=== PATIENT | female | born 1990 | race Caucasian/White ===

== ENCOUNTER 2021-08-09 00:25 | Emergency (ER) | payer SELFPAY ==
[2021-08-09 00:26] VITALS: BP 126/90; PULSE 99; RESP 18; TEMP 36.4; O2SAT 98; BMI 19.1
[2021-08-09 00:29] VITALS: BP 126/90; PULSE 86; RESP 18; TEMP 36.4; O2SAT 97
--- NOTE | 2021-08-09 00:48 | EX.ED.DYSGE1 ---
HPI History of Present Illness Chief Complaint: Shortness of Breath Narrative Narrative: Patient is a 30-year-old female with past medical history of asthma who continues to smoke. She states she has had approximately 1 month of congestion cough and fatigue. She states that the symptoms will seem to improve for a few days and then return. She states she is vaccinated against Covid and reports she had a home test which was negative just within 24 hours. She states that she has not seen anyone for this but as symptoms have persisted for so long she presents for evaluation [facility] Home Medications albuterol sulfate [Ventolin HFA] 1 - 2 puff INHALATION Q4H PRN PRN #1 device 08/09/21 [Rx Last Taken Unknown] prednisone 40 mg PO DAILY 7 Days #14 tab 08/09/21 [Rx Last Taken Unknown] promethazine-codeine 5 ml PO Q6H PRN 7 Days #140 ml 08/09/21 [Rx Last Taken Unknown] Allergy/AdvReac Type Severity Reaction Status Date / Time Penicillins [PCN] Allergy Anaphylaxis Verified 08/09/21 00:32 Social History Smoking Status: Current every day smoker tobacco type: cigarettes ROS ROS ED Constitutional Constitutional ED: Reports chills, fever(s) and subjective ENT ENT ED: Reports rhinorrhea and sore throat Cardiovascular Cardiovascular: Denies chest pain Respiratory/Chest Respiratory/Chest: Reports cough, dyspnea and sputum Gastrointestinal Gastrointestinal: Reports nausea; Denies abdominal pain, diarrhea or vomiting Genitourinary Genitourinary ED: Denies dysuria Musculoskeletal Musculoskeletal: Reports myalgias Integumentary Denies rash Neurologic Neurologic: Denies headache(s) Hematologic/Lymphatic Hematologic/Lymphatic: Denies easy bleeding or easy bruising EXAM Physical Exam Const Vital Signs: 08/09/21 00:26 08/09/21 00:29 Temperature 97.5 F L 97.5 F L Temperature Source Temporal Temporal Pulse Rate 99 86 Respiratory Rate 18 18 Respiratory Effort Normal Respiratory Depth Normal Blood Pressure 126/90 H 126/90 H Blood Pressure Mean 102 102 Pulse Ox 98 97 Oxygen Delivery Method Room Air Room Air Positive well nourished and well developed General Appearance ED: well developed HEENT Reports moist mucous membranes HEENT Narrative: Nasal mucosa is hyperemic and boggy with enlarged inferior nasal turbinates. There is cobblestoning the posterior pharynx consistent with sinus drainage but no airway edema or compromise Eyes PERRL and EOMs intact bilaterally Neck supple Neck Narrative: Positive anterior cervical lymphadenopathy noted Resp normal respiratory effort Resp Narrative: Breath sounds are diminished throughout with diffuse expiratory wheeze greatest in the bilateral bases Cardio regular rate and regular rhythm GI normal to inspection, nondistended, normoactive bowel sounds, non-tender, non-distended and no masses Auscultation: normoactive bowel sounds Palpation: soft Extremity normal to inspection Extremity Narrative: No asymmetric edema no pitting edema negative Homans' sign bilaterally Neuro oriented x3 and CN's II-XII intact bilaterally Sensorium / Orientation: alert Motor Exam: strength 5/5 throughout Psych mental status grossly normal Skin no rashes or lesions noted MDM MDM MDM Narrative Medical decision making narrative: Patient presented to the ER afebrile with stable vitals and no respiratory distress. Her constellation of symptoms is consistent with a recurrent viral infection. She states she tested negative for Covid just in the last 1 to 2 days so I felt no need to repeat this. I did elect to perform basic laboratory studies as well as influenza swab and chest x-ray based on her constellation of symptoms. Blood work revealed no clinically significant findings chest x-ray revealed no obvious infiltrate and influenza swab was negative. On reevaluation patient is resting comfortably and remains in no acute respiratory distress and therefore can be placed on symptomatic medications and discharged home. Lab Data Attestation: I reviewed the patient's lab results. Labs: Laboratory Results - last 24 hr 08/09/21 08/09/21 01:00 01:00 WBC 8.2 RBC 5.06 Hgb 14.6 Hct 44.1 MCV 87.2 MCH 28.9 MCHC 33.1 RDW Std Deviation 40.8 RDW Coeff of Nish 12.8 Plt Count 328 MPV 10.7 Immature Gran % (Auto) 0.400 Neut % (Auto) 58.0 Lymph % (Auto) 32.4 [place] % (Auto) 7.1 Eos % (Auto) 1.5 Baso % (Auto) 0.6 Absolute Neuts (auto) 4.7 Absolute Lymphs (auto) 2.64 Nucleated RBC % 0 Sodium 144 Potassium 3.6 Chloride 109 H Carbon Dioxide 29.0 Anion Gap 6 BUN 3 L Creatinine 0.66 Estim Creat Clear Calc 124.98 Est GFR (MDRD) Af Amer 132 Est GFR (MDRD) Non-Af 109 BUN/Creatinine Ratio 4.5 L Glucose 99 Calcium 8.8 Magnesium 2.1 Radiography Diagnostic Testing: Clinical Impression(s) from Imaging Studies Chest X-Ray 08/09/21 01:20 IMPRESSION: Normal x-ray examination of the chest. Electronically Signed: Jean Pierre Driver MD at 1:43 EST Tel , Service support , Discharge Plan Triage Chief Complaint: Shortness of Breath ED Provider: Jean Paul Cesar Dx/Rx/DC Orders Clinical Impression: Viral upper respiratory illness Instructions: ED URI, Viral W/ Wheezing (Adult) Prescriptions: New prednisone 20 mg tablet 40 mg PO DAILY 7 Days Qty: 14 RF: 0 albuterol sulfate [Ventolin HFA] 90 mcg/actuation HFA aerosol inhaler 1 - 2 puff inhalation Q4H PRN PRN (Reason: Wheezing) Qty: 1 RF: 0 promethazine-codeine 6.25-10 mg/5 mL syrup 5 ml PO Q6H PRN (Reason: cough) 7 Days Qty: 140 RF: 0 Primary Care Provider: Care Physician,No Primary Referrals: Dia Sim MD [STAFF PHYSICIAN] - 1 Week if not improving Care Physician,No Primary [Primary Care Provider] - Disposition Disposition: Home, Self Care
[2021-08-09] MEDS: dexAMETHasone 10 MG/ML Vial IV (01:02)
[2021-08-09] MEDS: 0.9% Normal Saline 1,000 ML 999 ML IV (01:02)
[2021-08-09 01:07] LABS: Absolute Lymphocyte Count 2.64 X10^3/uL (0.83-4.51); Absolute Neutrophil Count 4.7 X10^3/uL (2.0-7.7); Basophil# 0.05 X10^3/uL; Basophil% 0.6 % (0-1); Eosinophil# 0.12 X10^3/uL; Eosinophils% 1.5 % (0-5); Hematocrit 44.1 % (37-47); Hemoglobin 14.6 g/dL (12.0-15.0); Lymphocyte # 2.64 X10^3/ul (0.83-4.51); Lymphocyte % 32.4 % (19-41); Mean Corp Hgb Conc 33.1 g/dL (32-36); Mean Corpuscular Hgb 28.9 pg (27.0-32.0); Mean Corpuscular Volume 87.2 fL (81-99); Mean Platelet Vol. 10.7 fl (6.2-12.0); Monocyte# 0.58 X10^3/uL; Monocyte% 7.1 % (0-10); NRBC Flagged by Analyzer 0 % (0-5); Neutrophil # 4.74 X10^3/uL (2.7-7.7); Platelet Count 328 K/mm3 (150-450); RBC Distribution Width CV 12.8 % (11.6-14.6); RBC Distribution Width SD 40.8 fl (35.1-43.9); Red Blood Count 5.06 M/mm3 (4.2-5.4); White Blood Count 8.2 K/mm3 (4.4-11.0)
--- NOTE | 2021-08-09 01:20 | RAD_ITS ---
STUDY: X-RAY CHEST REASON FOR EXAM: Female, 30 years old. cough TECHNIQUE: Single AP portable view of the chest. COMPARISON: None. FINDINGS: The lungs are clear and expanded. There is no demonstrated pleural abnormality. Normal size heart. Normal mediastinum and cristino. Normal visualized pulmonary arteries. Normal visualized aortic arch and descending thoracic aorta. Normal visualized thoracic spine. Normal visualized ribs, clavicles, and shoulders. There is no demonstrated abnormality of the visualized soft tissue structures of the upper abdomen. RAD/Chest 1 View (Portable) IMPRESSION: Normal x-ray examination of the chest. Electronically Signed: Jean Pierre Driver MD at 1:43 EST Tel , Service support ,
[2021-08-09 01:26] LABS: Anion Gap 6 (5-15); BUN 3 mg/dL (7-18); BUN/Creat Ratio 4.5 RATIO (10-20); Calcium,Total 8.8 mg/dL (8.5-10.1); Chloride 109 mmol/L (98-107); Creatinine, Serum 0.66 mg/dL (0.55-1.02); EST Glomerular Filtration Rate 109 mL/min (>60); Est Glom Filt Rate - Afr Amer 132 mL/min (>60); Estimated Creatinine Clearance 124.98 ml/min; Glucose 99 mg/dL (74-106); Magnesium 2.1 mg/dL (1.6-2.6); Potassium 3.6 mmol/L (3.5-5.1); Sodium Level 144 mmol/L (136-145)
[2021-08-09] MEDS: Acetaminophen 500 MG Tablet 1000 MG PO (01:59)
[2021-08-09 02:02] VITALS: PULSE 90; RESP 16; O2SAT 100
== END 2021-08-09 02:07 | disposition home or self-care (01) ==
PROVIDERS: Emergency Provider Emergency Medicine
DX: R06.02 Shortness of breath (principal); J45.909 Unspecified asthma, uncomplicated; F17.210 Nicotine dependence, cigarettes, uncomplicated
CPT/HCPCS: 71045; 80048; 83735; 85025; 87804; 96361; 96374; 99284; J7030; A4216

== ENCOUNTER 2021-10-27 11:57 | Emergency (ER) | payer SELFPAY ==
[2021-10-27 11:57] VITALS: BP 150/102; PULSE 102; RESP 16; TEMP 36.2; O2SAT 100; BMI 18.1
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
--- NOTE | 2021-10-27 13:15 | RAD_ITS ---
STUDY: X-RAY CHEST REASON FOR EXAM: Female, 31 years old. Right rib pain TECHNIQUE: PA and lateral views of the chest. COMPARISON: Comparison is made with prior study dated 08/09/2011. FINDINGS: The lungs are clear and expanded. There is no demonstrated pleural abnormality. Normal size heart. Normal mediastinum and cristino. Normal visualized pulmonary arteries. Normal visualized aortic arch and descending thoracic aorta. There is a dextroscoliosis of the thoracic spine. Normal visualized ribs, clavicles, and shoulders. There is no demonstrated abnormality of the visualized soft tissue structures of the upper abdomen. RAD/Chest PA and Lateral IMPRESSION: Normal x-ray examination of the chest. Electronically Signed: Sage Portillo MD at 13:38 EST ,
[2021-10-27] MEDS: HYDROcodone Bitartrate/Apap 5/325 Tablet PO (13:25)
[2021-10-27] MEDS: Ondansetron ODT 4 MG Tablet PO (13:25)
[2021-10-27] MEDS: Ketorolac 15 MG/ML Vial IM (13:26)
[2021-10-27 14:21] VITALS: BP 145/85; PULSE 111; RESP 16; O2SAT 99
== END 2021-10-27 14:22 | disposition home or self-care (01) ==
PROVIDERS: Emergency Provider Physician Assistant; Visit Provider Physician Assistant
DX: S20.211A Contusion of right front wall of thorax, initial encounter (principal); Y04.8XXA Assault by other bodily force, initial encounter; F17.210 Nicotine dependence, cigarettes, uncomplicated; Y93.9 Activity, unspecified; Y92.9 Unspecified place or not applicable
CPT/HCPCS: 71046; 96372; 99284

== ENCOUNTER 2021-12-26 21:09 | Emergency (ER) | payer SELFPAY ==
[2021-12-26 21:09] VITALS: BP 123/78; PULSE 95; RESP 15; TEMP 36.3; O2SAT 97; BMI 19.0
--- NOTE | 2021-12-26 21:40 | EDS_ITS ---
HPI History of Present Illness Chief Complaint: Bite Detail of Chief Complaint: Left groin abscess Informant: patient Onset/Context/Timing Onset: Yesterday Context: Gradual Onset Timing: Continuous Current Severity: Mild Maximum Severity: Mild Narrative Narrative: 31-year-old female history of asthma. Complaining of a swelling in her left groin. Denies any discharge. It is mildly uncomfortable. No fever. She is not diabetic. No prior history. Prior similar symptoms: No Recent Illness/Hospitalization: No PFSH PFSH Medical History Asthma Endometriosis Home Medications sulfamethoxazole-trimethoprim [Bactrim DS] 1 tab PO BID 7 Days #14 tab 12/26/21 [Rx Last Taken Unknown] Allergy/AdvReac Type Severity Reaction Status Date / Time Penicillins [PCN] Allergy Anaphylaxis Verified 12/26/21 21:13 Social History Smoking Status: Current every day smoker tobacco type: cigarettes ROS ROS ED ROS Narrative Denies recent illness. Review of Systems ROS Unobtainable: Denies due to encephalopathy Constitutional Constitutional ED: Denies fever(s) Eyes Eyes: Denies change in vision ENT ENT ED: Denies ear pain Cardiovascular Cardiovascular: Denies chest pain Respiratory/Chest Respiratory/Chest: Denies cough or dyspnea Gastrointestinal Gastrointestinal: Denies abdominal pain, diarrhea, nausea or vomiting Genitourinary Genitourinary ED: Denies dysuria Musculoskeletal Musculoskeletal: Denies myalgias Integumentary Denies rash Neurologic Neurologic: Denies headache(s) Psychiatric Psychiatric: Denies depression Endocrine Endocrinology: Denies polyuria Allergic/Immunologic Allergic/Immunologic ED: Denies urticaria EXAM Physical Exam Narrative Exam Narrative: 31-year-old female no acute distress. H EENT exam multiple piercings. Moist membranes. Lungs are clear. Heart regular rhythm no murmur. Abdomen soft nontender. Moving all 4 extremities. Neurovascular intact. Left groin with skin crease a quarter sized abscess. Tender mild fluctuance. No cellulitis. No discharge or bleeding. Const Vital Signs: 12/26/21 21:09 Temperature 97.4 F L Temperature Source Temporal Pulse Rate 95 Respiratory Rate 15 Blood Pressure 123/78 H Blood Pressure Mean 93 Pulse Ox 97 Oxygen Delivery Method Room Air Positive well nourished and well developed; Negative for obese, cachectic, contractures or unkempt General Appearance ED: well developed and NAD; Negative for unkempt, cachectic, contractures, cyanotic, diaphoretic or pallor Nutritional Appearance: Negative for cachectic or obese HEENT Reports moist mucous membranes Negative for trauma or tenderness Eyes PERRL and EOMs intact bilaterally General Eye ED: Negative for pale conjunctiva or scleral icterus Neck no lymphadenopathy, supple and no JVD General: Negative for tenderness Chest Wall inspection of chest normal and palpation of chest normal Resp normal respiratory effort and clear to auscultation bilaterally Effort and Inspection: Negative for pain with movement Auscultation: Negative for rales, rhonchi or wheezes Cardio regular rate, regular rhythm, S1 normal heart sound, S2 normal heart sound and no murmurs GI normal to inspection, nondistended, normoactive bowel sounds, non-tender, non- distended and no masses Auscultation: normoactive bowel sounds Palpation: soft; Negative for tender, guarding or rebound tenderness present Back/Spine no CVA tenderness Extremity normal to inspection Extremity Narrative: Left groin abscess the size of a quarter. General Extremety ED: Negative for edema or tenderness General Extremity: Negative for edema Neuro oriented x3 Sensorium / Orientation: alert; Negative for orientation impaired, lethargic or stuporous Motor Exam: strength 5/5 throughout Psych mental status grossly normal Appearance: Negative for unkempt Mood & Affect: Negative for depressed Skin no rashes or lesions noted and no wounds Skin Narrative: Left groin abscess. General Skin Exam: Negative for jaundice or pallor MDM MDM MDM Narrative Medical decision making narrative: 31-year-old healthy female with a left groin abscess. This will need to incise and drain. Patient doing well at 1015 after incision and drainage. Procedures Other Procedures Procedure(s): Left groin abscess incision and drainage. Cleaned with Shur- Clens. Previously had let on the site. Local anesthetized with subcu lidocaine. Once proper anesthetic was obtained I made about a 1 cm incision. Expressed 2 to 3 cc of pus a small amount of blood. Packed it with 2 inches of half-inch gauze. Patient tolerated procedure well. Was instructed on wound care. Pulled the packing out in 4 days. Discharge Plan Triage Chief Complaint: Bite ED Provider: Manoj Sparks Dx/Rx/DC Orders Clinical Impression: Abscess, Encounter for incision and drainage procedure Instructions: ED Abscess Incision And Drainage Prescriptions: New sulfamethoxazole-trimethoprim [Bactrim DS] 800-160 mg tablet 1 tab PO BID 7 Days Qty: 14 RF: 0 Primary Care Provider: Care Physician,No Primary Referrals: Tani Reyes MD [STAFF PHYSICIAN] - 1 Week if not improving Care Physician,No Primary [Primary Care Provider] - Activity Restrictions/Additional Instructions: Motrin and Tylenol for pain. Antibiotic Bactrim twice a day for 7 days to help resolve the infection. Warm soaks and warm compresses to the area. Return if worse. Follow-up if not improving. Disposition Disposition: Home, Self Care
[2021-12-26] MEDS: Lidocaine/Epi/Tetracaine 50 ML 1 APPLIC TOPICAL (21:44)
== END 2021-12-26 22:30 | disposition home or self-care (01) ==
PROVIDERS: Emergency Provider Emergency Medicine; Visit Provider Emergency Medicine
DX: L02.214 Cutaneous abscess of groin (principal); F17.210 Nicotine dependence, cigarettes, uncomplicated; J45.909 Unspecified asthma, uncomplicated
CPT/HCPCS: 10060; 99283

== ENCOUNTER 2022-05-06 19:06 | Emergency (ER) | payer SELFPAY ==
[2022-05-06 19:06] VITALS: BP 129/91; PULSE 94; RESP 15; TEMP 37.1; O2SAT 96; BMI 16.9
--- NOTE | 2022-05-06 20:08 | EDS_ITS ---
HPI <YOHANNES Hightower - Last Filed: 05/06/22 21:03> History of Present Illness Chief Complaint: Dental Narrative Narrative: 31-year-old female presents with dental infection. Over the last 2 days she has had pain in her left upper incisor and swelling of the cheek. No fever chills or difficulty swallowing or breathing. She is not diabetic or immunocompromised. PFSH <YOHANNES Hightower - Last Filed: 05/06/22 21:03> [facility] Medical History Asthma Endometriosis Home Medications sulfamethoxazole 800 mg-trimethoprim 160 mg tablet (Bactrim DS) 1 tab PO BID 7 days #14 tabs 12/26/21 [Rx Last Taken Unknown] clindamycin HCl 300 mg capsule (Cleocin HCl) 300 mg PO Q6H #28 CAPSULES 05/06/22 [Rx Last Taken Unknown] hydrocodone-acetaminophen 5-325mg 5mg-325mg 1 tab PO Q6H PRN PRN Pain 3 days #10 TABLETS 05/06/22 [Rx Last Taken Unknown] Allergy/AdvReac Type Severity Reaction Status Date / Time Penicillins [PCN] Allergy Anaphylaxis Verified 05/06/22 19:08 Social History Smoking Status: Current every day smoker tobacco type: cigarettes ROS <YOHANNES Hightower - Last Filed: 05/06/22 21:03> ROS ED ROS Narrative Constitutional: Negative for fever, chills, malaise. Eyes: Negative for visual change. ENT: Positive for dental pain. CVS: Negative for palpitations, chest pain. Respiratory: Negative for shortness of breath, cough. GI: Negative for abdominal pain, nausea, vomiting. : Negative for dysuria. Neuro: Negative for headache. Skin: Negative for rash, abscess, or wound. Musc: Negative for joint pain, swelling, trauma. Heme: Negative for easy bruising, bleeding, lymphadenopathy. EXAM <YOHANNES Hightower - Last Filed: 05/06/22 21:03> Physical Exam Narrative Exam Narrative: CONST: Patient sitting in no acute distress. EYES: Normal inspection. ENT: Mild swelling of left cheek. Diffuse dental caries with multiple missing or avulsed teeth, tender over left upper incisor, no periapical abscess. No trismus or tongue elevation, sublingual space is soft, airway patent with midline uvula. NECK: Normal inspection. Supple, no masses or lymphadenopathy, trachea midline. RESP: No respiratory distress, CTAB. CVS: Regular rate and rhythm, no murmur, no gallop. Back: Normal inspection, no CVA tenderness. SKIN: Color normal, no rash, warm, dry, intact. EXTREMITIES: Normal appearance. NEURO: Oriented x4. PSYCH: Normal affect. Const Vital Signs: 05/06/22 19:06 Temperature 98.7 F Temperature Source Temporal Pulse Rate 94 Respiratory Rate 15 Blood Pressure 129/91 H Blood Pressure Mean 103 Pulse Ox 96 Oxygen Delivery Method Room Air <Dr. Harvinder Valdes MD - Last Filed: 05/06/22 21:40> Physical Exam Const Vital Signs: 05/06/22 19:06 Temperature 98.7 F Temperature Source Temporal Pulse Rate 94 Respiratory Rate 15 Blood Pressure 129/91 H Blood Pressure Mean 103 Pulse Ox 96 Oxygen Delivery Method Room Air MDM <YOHANNES Hightower - Last Filed: 05/06/22 21:03> [facility] Narrative Medical decision making narrative: Patient with chronic significant dental caries has 2 days of dental pain and c heek swelling. She is tender over the left maxillary incisor. There is no periapical abscess or indication for I&D. Airway patent. She was given first dose of clindamycin and a short prescription for [place] and will continue ibuprofen. She was instructed to follow-up with a dentist and was discharged in stable condition. <Dr. Harvinder Valdes MD - Last Filed: 05/06/22 21:40> [facility] Narrative Medical decision making narrative: Patient with chronic significant dental caries has 2 days of dental pain and cheek swelling. She is tender over the left maxillary incisor. There is no periapical abscess or indication for I&D. Airway patent. She was given first dose of clindamycin and a short prescription for [place] and will continue ibuprofen. She was instructed to follow-up with a dentist and was discharged in stable condition. Seen and evaluated independently and in conjunction with physician assistant food service director. Agree with notes above unless documented otherwise. Agree with above, patient has a fractured tooth that appears to have disintegrated partially due to decay. There is no abscess, just developing pain. She is stable, will place her on antibiotics and pain medication, advised close outpatient dental follow-up she is comfortable with the plan. Discharge Plan Triage Chief Complaint: Dental ED Midlevel Provider: Jillian Samano ED Provider: Harvinder Valdes Dx/Rx/DC Orders Clinical Impression: Odontalgia, Dental caries Instructions: ED Dental Abscess Prescriptions: New clindamycin HCl [Cleocin HCl] 300 mg capsule 300 mg PO Q6H Qty: 28 0RF hydrocodone-acetaminophen 5-325 mg tablet 1 tab PO Q6H PRN PRN (Reason: Pain) 3 Days Qty: 10 0RF No Action sulfamethoxazole-trimethoprim [Bactrim DS] 800-160 mg tablet 1 tab PO BID 7 Days Qty: 14 0RF Primary Care Provider: Care Physician,No Primary Referrals: Care Physician,No Primary [Primary Care Provider] - Activity Restrictions/Additional Instructions: Take all of the prescribed antibiotics. Take Tylenol or ibuprofen as needed for pain. Please follow-up with a dentist. If the swelling worsens or you have difficulty swallowing or breathing return to the ER. Disposition Disposition: Home, Self Care Discharge Date/Time: 05/06/22 21:22
[2022-05-06] MEDS: Clindamycin HCl 150 MG Capsule 300 MG PO (20:17)
== END 2022-05-06 21:22 | disposition home or self-care (01) ==
PROVIDERS: Emergency Provider Emergency Medicine; Visit Provider Emergency Medicine
DX: K02.9 Dental caries, unspecified (principal); F17.210 Nicotine dependence, cigarettes, uncomplicated; J45.909 Unspecified asthma, uncomplicated
CPT/HCPCS: 99283

== ENCOUNTER 2022-06-28 08:47 | Emergency (ER) | payer SELFPAY ==
[2022-06-28 08:47] VITALS: BP 118/89; PULSE 108; RESP 16; TEMP 36.2; O2SAT 99; BMI 15.5
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
[2022-06-28] MEDS: HYDROcodone Bitartrate/Apap 5/325 Tablet PO (10:25)
[2022-06-28] MEDS: Diphth,Pertuss(Acell),Tet Vac 0.5 ML Vial IM (10:25)
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
== END 2022-06-28 12:33 | disposition home or self-care (01) ==
PROVIDERS: Emergency Provider Emergency Medicine; Visit Provider Emergency Medicine
DX: S09.90XA Unspecified injury of head, initial encounter (principal); S80.211A Abrasion, right knee, initial encounter; S80.212A Abrasion, left knee, initial encounter; M25.522 Pain in left elbow; M25.572 Pain in left ankle and joints of left foot; R07.81 Pleurodynia; Z23 Encounter for immunization; Y04.8XXA Assault by other bodily force, initial encounter; Y92.410 Unspecified street and highway as the place of occurrence of the external cause; F17.210 Nicotine dependence, cigarettes, uncomplicated
CPT/HCPCS: 70450; 71101; 73080; 73564; 73610; 99283

== ENCOUNTER 2022-07-25 15:16 | Emergency (ER) | payer SELFPAY ==
[2022-07-25 15:17] VITALS: BP 128/91; PULSE 96; RESP 18; TEMP 36.6; O2SAT 98; BMI 16.8
[2022-07-25 16:16] VITALS: PULSE 74; RESP 16; O2SAT 97
[2022-07-25 16:17] VITALS: O2SAT 96
--- NOTE | 2022-07-25 17:20 | EX.ED.VIS.UR ---
HPI HPI - URI History of Present Illness Chief Complaint: Cold Sx Detail of Chief Complaint: 1 to 2 days Informant: patient Onset/Context/Timing Onset: Today and Yesterday Context: Gradual Onset Current Severity: Mild Maximum Severity: Mild Associated Symptoms Associated Symptoms: Positive for Nasal Congestion, Myalgias and Nonproductive cough; Negative for Nausea or Vomiting Narrative Narrative: 29-year-old female history of past medical history. Has had body aches nasal congestion since yesterday. Subjective fever which she is treated with Tylenol. Many coworkers with similar symptoms. No vomiting or diarrhea. Prior similar symptoms: Yes Recent Illness/Hospitalization: No ROS ROS ED ROS Narrative Cough. Nasal congestion. Body aches. Fever. Review of Systems ROS Unobtainable: Denies due to encephalopathy Constitutional Constitutional ED: Reports fever(s) and subjective; Denies chills Eyes Eyes: Denies blurry vision ENT ENT ED: Denies ear pain or rhinorrhea Cardiovascular Cardiovascular: Denies chest pain Respiratory/Chest Respiratory/Chest: Reports cough; Denies dyspnea Gastrointestinal Gastrointestinal: Denies abdominal pain, constipation, diarrhea, melena or nausea Genitourinary Genitourinary ED: Denies dysuria or hematuria Musculoskeletal Musculoskeletal: Denies arthralgias Integumentary Denies abscess Neurologic Neurologic: Denies headache(s) Psychiatric Psychiatric: Denies anxiety Endocrine Endocrinology: Denies cold intolerance Hematologic/Lymphatic Hematologic/Lymphatic: Denies easy bleeding Allergic/Immunologic Allergic/Immunologic ED: Denies mouth swelling, tongue swelling or urticaria PFSH [facility] Medical History Asthma Endometriosis Allergy/AdvReac Type Severity Reaction Status Date / Time Penicillins [PCN] Allergy Anaphylaxis Verified 07/25/22 15:19 Social History Smoking Status: Current every day smoker tobacco type: cigarettes EXAM Physical Exam Narrative Exam Narrative: Well-appearing 29-year-old female. Vital signs stable afebrile. Pulse ox 90% on room air no hypoxia. H EENT exam unremarkable. Neck nontender no lymphadenopathy. Lungs clear to auscultation bilaterally. Heart regular rhythm no murmur. Abdomen soft nontender. Normal bowel sounds no peritoneal signs. Moving all 4 extremities. Calves are nontender without edema or cords. Neurologic exam normal. Const Vital Signs: 07/25/22 15:17 07/25/22 16:16 07/25/22 16:17 Temperature 97.8 F Temperature Source Temporal Pulse Rate 96 74 Respiratory Rate 18 16 Respiratory Effort Short of Breath Blood Pressure 128/91 H Blood Pressure Mean 103 Pulse Ox 98 97 Oxygen Delivery Method Room Air Room Air Room Air Positive well nourished and well developed; Negative for obese, cachectic or contractures General Appearance ED: well developed and NAD; Negative for cachectic, contractures, cyanotic, diaphoretic or pallor Nutritional Appearance: Negative for cachectic or obese HEENT Reports moist mucous membranes; Denies dry mucous membranes normocephalic and atraumatic; Negative for scalp tenderness Face and Sinus: Negative for sinus tenderness or maxillary instability Mouth ED: No dry mucous membranes Mouth: No dry mucous membranes Teeth and [place]ing[place]: Negative for caries Throat: posterior oropharynx normal; Negative for tonsils abnormal or posterior oropharynx abnormal Eyes PERRL and EOMs intact bilaterally General Eye ED: Negative for pale conjunctiva or scleral icterus Neck no lymphadenopathy, supple, no meningeal signs and no JVD General: Negative for anterior neck swelling or lymphadenopathy Resp normal respiratory effort and clear to auscultation bilaterally Effort and Inspection: Negative for retractions Auscultation: Negative for rales, rhonchi, wheezes or diminished lung sounds Cardio S1 normal heart sound, S2 normal heart sound and no murmurs Rate: regular rate; Negative for bradycardia Rhythm: regular rhythm; Negative for abnormal rhythm GI non-tender, non-distended and no masses Inspection: Negative for abdominal distention Auscultation: normoactive bowel sounds Palpation: soft; Negative for tender or guarding Back/Spine no CVA tenderness and normal ROM General Back: Negative for CVA tenderness Cervical Spine: Negative for cervical spine tenderness Thoracic Spine / Upper Back: Negative for thoracic spinal tenderness Lumbar Spine / Lower Back: Negative for lumbar spinal tenderness Sacrum: Negative for tenderness Extremity normal to inspection and full ROM General Extremety ED: Negative for cyanosis or tenderness General Extremity: Negative for cyanosis Neuro oriented x3 and CN's II-XII intact bilaterally Sensorium / Orientation: alert, oriented to person, oriented to place and oriented to time; Negative for orientation impaired, lethargic or stuporous Motor Exam: strength 5/5 throughout Psych mental status grossly normal Appearance: Negative for other Attitude: No agitated Mood & Affect: Negative for depressed, anxious or tearful Skin General Skin Exam: Negative for jaundice or pallor Lesions: no lesions Rashes: no rashes Trauma: Negative for abrasion MDM MDM MDM Narrative Medical decision making narrative: 31-year-old with viral syndrome. Both rapid COVID and influenza were negative. She will be treated as a viral syndrome. Lungs are clear she does not need a chest x-ray. Fluids and rest. Tylenol Motrin. Follow-up if not improving return if worse. Lab Data Attestation: I reviewed the patient's lab results. Lab results narrative: Rapid COVID and influenza test were both negative. Discharge Plan Triage Chief Complaint: Cold Sx ED Provider: Manoj Sparks Dx/Rx/DC Orders Clinical Impression: Viral syndrome Instructions: ED URI, Viral, No Abx (Adult) Stand Alone Forms: ED Work / School Excuse Primary Care Provider: Care Physician,No Primary Referrals: Care Physician,No Primary [Primary Care Provider] - Tani Reyes MD [Med Staff - [facility]] - 1 Week if not improving Activity Restrictions/Additional Instructions: Plenty of fluids and rest. Alternate Tylenol and Motrin for body aches and fever Disposition Disposition: Home, Self Care Discharge Date/Time: 07/25/22 17:24
== END 2022-07-25 17:24 | disposition home or self-care (01) ==
PROVIDERS: Emergency Provider Emergency Medicine; Visit Provider Emergency Medicine
DX: B34.9 Viral infection, unspecified (principal); F17.210 Nicotine dependence, cigarettes, uncomplicated; Z20.822 Contact with and (suspected) exposure to COVID-19
CPT/HCPCS: 87428; 99282

== ENCOUNTER 2023-12-12 22:18 | Emergency (ER) | payer OTHER, SELFPAY ==
[2023-12-12 22:19] VITALS: BP 126/94; PULSE 91; RESP 18; TEMP 36.6; O2SAT 98; BMI 16.6
--- NOTE | 2023-12-12 22:31 | RAD_ITS ---
EXAM: XR RIGHT HAND COMPLETE, 3 OR MORE VIEWS CLINICAL INDICATION: injury TECHNIQUE: Frontal, lateral and oblique views of the right hand. COMPARISON: No relevant prior studies available. FINDINGS: BONES/JOINTS: Vertical fracture through the tuft of the distal phalanx of the thumb. Preservation of the joint space. No sclerotic or destructive changes observed. SOFT TISSUES: Soft tissue swelling of the thumb. No radiopaque foreign body. RAD/Hand Min 3 Views IMPRESSION: Vertical fracture through the tuft of the distal phalanx of the thumb. Electronically Signed: Marc Mims MD at 23:19 EDT ,
--- NOTE | 2023-12-12 22:33 | EX.ED.UPPERE ---
HPI History of Present Illness Chief Complaint: Upper Extremity Injury Informant: patient Occured/Mechanism Mechanism/Context: Yes crush Onset/Context/Timing Onset: Today Narrative Narrative: Patient presents secondary to crush injury to the right thumb. She was at work lifting some racks when her right thumb got pinned between 2 racks causing a crush injury. She is left-hand dominant. No open lacerations. She was wearing gloves at the time. She did take ibuprofen prior to arrival. [facility] PFS Medical History Asthma Endometriosis Allergy/AdvReac Type Severity Reaction Status Date / Time Penicillins [PCN] Allergy Anaphylaxis Verified 12/12/23 22:18 Social History Smoking Status: Current every day smoker tobacco type: cigarettes ROS ROS ED Constitutional Constitutional ED: Denies chills or fever(s) ENT ENT ED: Denies rhinorrhea or sore throat Cardiovascular Cardiovascular: Denies chest pain Gastrointestinal Gastrointestinal: Denies abdominal pain, nausea or vomiting Musculoskeletal Musculoskeletal: Reports extremity pain; Denies back pain Integumentary Denies Abrasions or rash Neurologic Neurologic: Denies headache(s) or weakness Psychiatric Psychiatric: Denies anxiety or depression Allergic/Immunologic Allergic/Immunologic ED: Denies lip swelling or urticaria EXAM Physical Exam Const Vital Signs: 12/12/23 22:19 Temperature 97.8 F Temperature Source Temporal Pulse Rate 91 Respiratory Rate 18 Blood Pressure 126/94 H Blood Pressure Mean 104 Pulse Ox 98 Oxygen Delivery Method Room Air Positive well nourished and well developed General Appearance ED: well developed HEENT Reports moist mucous membranes Chest Wall inspection of chest normal and palpation of chest normal Resp normal respiratory effort and clear to auscultation bilaterally Cardio regular rate and regular rhythm GI non-tender Extremity Extremity Narrative: Mild edema to the right thumb. No lacerations or abrasions noted. Good cap refill distally. Sensation intact. Slight decreased range of motion secondary to pain but able to wiggle all fingers. Neuro oriented x3 Psych mental status grossly normal MDM MDM MDM Narrative Medical decision making narrative: Right hand x-ray obtained to evaluate for potential fracture. Treatment and Re-Evaluation Narrative: Right hand x-ray per my interpretation reveals does show a fracture of the distal phalanx of the right thumb. Radiology interpretation reviewed and agrees. Test results discussed with the patient. She be placed in AlumaFoam splint. She be given work restrictions. She will use Tylenol or ibuprofen as needed for pain. She will follow-up with corporate care in 3 to 5 days. Discharge Plan Triage Chief Complaint: Upper Extremity Injury ED Provider: Cherie Melgar Dx/Rx/DC Orders Clinical Impression: Closed fracture of tuft of distal phalanx of right thumb, Crush injury Instructions: ED Crush Injury, Hand, ED Fracture, Finger, Closed Stand Alone Forms: Work Status Form Primary Care Provider: Care Physician,No Primary Referrals: Corporate,Care [Group of Physicians] - 3-5 Days Care Physician,No Primary [Primary Care Provider] - Disposition Disposition: Home, Self Care
== END 2023-12-12 23:49 | disposition home or self-care (01) ==
PROVIDERS: Emergency Provider Emergency Medicine; Visit Provider Emergency Medicine
DX: S62.521A Displaced fracture of distal phalanx of right thumb, initial encounter for closed fracture (principal); F17.210 Nicotine dependence, cigarettes, uncomplicated; Y99.0 Civilian activity done for income or pay; W23.2XXA Caught, crushed, jammed or pinched between a moving and stationary object, initial encounter; Y93.89 Activity, other specified; Y92.89 Other specified places as the place of occurrence of the external cause
CPT/HCPCS: 73130; 99283

== ENCOUNTER 2024-06-22 15:52 | Emergency (ER) | payer SELFPAY ==
[2024-06-22 15:56] VITALS: BP 130/80; PULSE 90; RESP 18; TEMP 37.2; O2SAT 97; BMI 16.7
--- NOTE | 2024-06-22 16:06 | EKG12_ITS ---
Test Reason : CP Blood Pressure : */* mmHG Vent. Rate : 80 BPM Atrial Rate : 80 BPM P-R Int : 160 ms QRS Dur : 86 ms QT Int : 370 ms P-R-T Axes : 76 73 61 degrees QTcB Int : 426 ms Sinus rhythm with marked sinus arrhythmia Poor R wave progression borderline Confirmed by Juan Luis Levine ([id number]), news assignment editor SYDNEE KRUGER ([id number]) on 06/23/2024 9:19:40 AM Referred By: KOBI/[email or web address] Confirmed By: Juan Luis Levine
--- NOTE | 2024-06-22 16:09 | EDS_ITS ---
HPI <YOHANNES Hightower - Last Filed: 06/22/24 18:00> History of Present Illness Chief Complaint: Chest Pain Narrative Narrative: 33-year-old female with no significant past medical history sent in by urgent care for evaluation of chest pain. She states over the last months she has had intermittent sharp pain in the left side of her chest. It can last a couple seconds or up to a minute. She states the first episode was very painful but since then it was mild and she did not even really think much of it. Today at work sometime between 9 AM and 1 PM when she was walking around she started to feel lightheaded and had chest pain that was lasting longer, several minutes at a time, and also felt short of breath. She denies pain in her jaw or arms. She has no nausea or vomiting. She went to urgent care and then was given aspirin 325 mg and sent here for evaluation. She denies any personal cardiac history. She has had several family members on her maternal side have heart attacks and states her uncle was 32 and had an PA. She smokes 1 pack/day of cigarettes since age 13. She has no history of DVT/PE, leg pain or swelling, recent surgery or travel, cough or hemoptysis. [facility] <YOHANNES Hightower - Last Filed: 06/22/24 18:00> [facility] Medical History Asthma Endometriosis Home Medications ?Medication ?Instructions ?Recorded ?Last Taken ?Type NK 06/22/24 Unknown History Allergy/AdvReac Type Severity Reaction Status Date / Time Penicillins (PCN) Allergy Anaphylaxis Verified 06/22/24 15:56 Social History Smoking Status: Current every day smoker tobacco type: cigarettes ROS <YOHANNES Hightower - Last Filed: 06/22/24 18:00> ROS ED ROS Narrative Constitutional: Negative for fever, chills, malaise. CVS: Positive for chest pain. Negative for palpitations, syncope. Respiratory: Positive for cough. GI: Negative for abdominal pain, nausea, vomiting. EXAM <YOHANNES Hightower - Last Filed: 06/22/24 18:00> Physical Exam Narrative Exam Narrative: CONST: Patient sitting in no acute distress. EYES: Normal inspection. NECK: Normal inspection. RESP: No respiratory distress, CTAB. CVS: Regular rate and rhythm, no murmur, no gallop. ABD: Soft and nontender, no guarding or rebound, nondistended, no hepato splenomegaly. SKIN: Color normal, no rash, warm, dry, intact. EXTREMITIES: Normal appearance, no pedal edema. NEURO: Alert and answering questions appropriately. PSYCH: Normal affect. Const Vital Signs: 06/22/24 15:56 06/22/24 16:02 06/22/24 17:00 Temperature 98.9 F Temperature Source Oral Pulse Rate 90 Respiratory Rate 18 Respiratory Effort Normal Non-Labored Blood Pressure 130/80 H 122/92 H Blood Pressure Mean 96 102 Pulse Ox 97 Oxygen Delivery Method Room Air 06/22/24 17:07 Temperature 98 F Temperature Source Pulse Rate 76 Respiratory Rate 16 Respiratory Effort Blood Pressure 122/92 H Blood Pressure Mean 102 Pulse Ox 99 Oxygen Delivery Method <Dr. Manuel Sam DO - Last Filed: 06/22/24 17:12> Physical Exam Const Vital Signs: 06/22/24 15:56 06/22/24 16:02 06/22/24 17:00 Temperature 98.9 F Temperature Source Oral Pulse Rate 90 Respiratory Rate 18 Respiratory Effort Normal Non-Labored Blood Pressure 130/80 H 122/92 H Blood Pressure Mean 96 102 Pulse Ox 97 Oxygen Delivery Method Room Air 06/22/24 17:07 Temperature 98 F Temperature Source Pulse Rate 76 Respiratory Rate 16 Respiratory Effort Blood Pressure 122/92 H Blood Pressure Mean 102 Pulse Ox 99 Oxygen Delivery Method <YOHANNES Hightower - Last Filed: 06/22/24 18:00> Heart Score Score: 1 <Dr. Manuel Sam DO - Last Filed: 06/22/24 17:12> Heart Score History: Slightly/Non-Suspicious ECG: Normal Age: </= 45 years Risk Factors: 1 or 2 Risk Factors Troponin: </= Normal Limit Score: 1 MDM <YOHANNES Hightower - Last Filed: 06/22/24 18:00> [facility] Narrative Medical decision making narrative: History gathered from: Patient and significant other Differential includes but not limited to: ACS, PE unlikely, GERD, anxiety Patient presents evaluation of chest pain and lightheadedness that started around 9 AM. She is also reporting intermittent chest pain over the last month lasting seconds to minutes. She was given aspirin by urgent care prior to arrival and states her symptoms have resolved. She appears well and nontoxic with normal vital signs. Her exam is unremarkable. EKG is normal sinus rhythm with no acute ischemic changes and troponin is less than 3. Basic labs are unremarkable. CXR shows no acute process. She is PERC negative so I did not order D-dimer. Since her pain started hours ago and has resolved and troponin is less than 3 I do not think she needs serial enzymes. Patient was advised to follow-up with the primary care doctor return if symptoms worsen. She was discharged in stable condition. Lab Data Attestation: I reviewed the patient's lab results. Labs: Laboratory Results - last 24 hr 06/22/24 16:12 WBC 9.9 RBC 4.58 Hgb 13.3 Hct 39.4 MCV 86.0 MCH 29.0 MCHC 33.8 RDW Std Deviation 41.1 RDW Coeff of Nish 13.2 Plt Count 273 MPV 11.8 Immature Gran % (Auto) 0.400 Neut % (Auto) 61.1 Lymph % (Auto) 27.2 [place] % (Auto) 9.5 Eos % (Auto) 1.3 Baso % (Auto) 0.5 Absolute Neuts (auto) 6.1 Absolute Lymphs (auto) 2.70 Nucleated RBC % 0 Sodium 142 Potassium 3.4 L Chloride 110 H Carbon Dioxide 27.0 Anion Gap 6 BUN 6 L Creatinine 0.68 Estim Creat Clear Calc 102.87 Est GFR (MDRD) Af Amer 126 Est GFR (MDRD) Non-Af 104 BUN/Creatinine Ratio 8.8 L Glucose 103 Calcium 9.0 Troponin I High Sens < 3 L Radiography Diagnostic Testing: Clinical Impression(s) from Imaging Studies Chest X-Ray 06/22/24 16:15 IMPRESSION: No radiographic evidence of acute cardiopulmonary disease. Electronically Signed: Melvin Tomlinson DO at 16:36 EST Reading Location ID and State: [facility] / [place] Tel [phone], Service support , ED attending interpretation of 1-view chest x-ray shows normal heart size, no acute infiltrate, edema, or effusion. <Dr. Manuel Sam DO - Last Filed: 06/22/24 17:12> MDM Lab Data Labs: Laboratory Results - last 24 hr 06/22/24 16:12 WBC 9.9 RBC 4.58 Hgb 13.3 Hct 39.4 MCV 86.0 MCH 29.0 MCHC 33.8 RDW Std Deviation 41.1 RDW Coeff of Nish 13.2 Plt Count 273 MPV 11.8 Immature Gran % (Auto) 0.400 Neut % (Auto) 61.1 Lymph % (Auto) 27.2 [place] % (Auto) 9.5 Eos % (Auto) 1.3 Baso % (Auto) 0.5 Absolute Neuts (auto) 6.1 Absolute Lymphs (auto) 2.70 Nucleated RBC % 0 Sodium 142 Potassium 3.4 L Chloride 110 H Carbon Dioxide 27.0 Anion Gap 6 BUN 6 L Creatinine 0.68 Estim Creat Clear Calc 102.87 Est GFR (MDRD) Af Amer 126 Est GFR (MDRD) Non-Af 104 BUN/Creatinine Ratio 8.8 L Glucose 103 Calcium 9.0 Troponin I High Sens < 3 L Radiography Diagnostic Testing: Clinical Impression(s) from Imaging Studies Chest X-Ray 06/22/24 16:15 IMPRESSION: No radiographic evidence of acute cardiopulmonary disease. Electronically Signed: Melvin Tomlinson DO at 16:36 EST Reading Location ID and State: [facility] / [place] Tel [phone], Service support , Treatment and Re-Evaluation :: I have personally performed a face to face assessment of the patient and have reviewed the ELDER Note. I performed a substantive portion of the visit including all aspects of the following. My linn findings include: History: Patient presents with chest pain that began 1 month ago. Patient states it comes and goes. Patient describes it as stabbing. Patient states it is over the left lower parasternal area. Patient states nothing makes it better nothing makes it worse. Patient admits to some shortness of breath and cough. Patient states she occasionally coughs up some clear sputum. Patient admits to some lightheadedness and some palpitations. Patient also admits to some gastroesophageal reflux symptoms. Exam: Vital signs are stable. Patient is afebrile. Patient in no acute distress. Oral mucosa is pink and moist. Neck is supple. Trachea is midline. There is no JVD. Heart was regular rate and rhythm. Lungs are clear and equal bilateral. There is good respiratory effort noted. Abdomen is soft. Bowel sounds are normal. There is no tenderness. Cranial nerves II through XII are intact. There are no focal motor or sensory deficits noted. Medical Decision Making: Differential diagnosis includes cardiac dysrhythmia, cardiac ischemia, pneumonia, pneumothorax, gastroesophageal reflux disease, and anxiety. EKG will be obtained to assess for cardiac dysrhythmia and cardiac ischemia. Chest x-ray will be obtained to assess for pneumonia and pneumothorax. CBC will be obtained to assess for leukocytosis and anemia. Basic metabolic profile will be obtained to assess for electrolyte abnormality and renal function. High-sensitivity troponin will be obtained to assess for cardiac ischemia. I do not feel this is from a pulmonary embolism, patient has no PE risk factors and has normal vital signs. EKG was obtained. On my independent interpretation it shows a normal sinus rhythm with a rate of 80. NV interval, QRS interval, and QTc intervals are within normal limits.. No acute ST or T wave changes noted. PA and lateral chest x-ray was obtained. There are 2 views. On my independent interpretation, lung gan are clear. There is normal cardiac silhouette. Bony thorax is normal. There is no acute process noted. Radiologist also interpreted the x- ray and agrees. CBC was reviewed and was within normal limits. Basic metabolic profile was reviewed. Potassium was slightly low at 3.4. Chloride was slightly elevated at 110. The remainder was essentially within normal limits. High- sensitivity troponin was reviewed and was less than 3. Patient was advised of her findings. Patient has a HEART score of 1. Patient was advised that this is low risk for acute cardiac event. Patient was instructed to follow-up with her primary care physician in 5 to 7 days. Patient understood and was agreeable with the plan. All questions were answered. Discharge Plan Triage Chief Complaint: Chest Pain ED Midlevel Provider: Jillian Samano ED Provider: Manuel Sam Dx/Rx/DC Orders Clinical Impression: Chest pain, Tobacco use disorder Instructions: ED Chest Pain, Uncertain Cause Prescriptions: No Action NK Primary Care Provider: Care Physician,No Primary Referrals: Care Physician,No Primary [Primary Care Provider] - Activity Restrictions/Additional Instructions: Your screening tests today look normal. Follow-up with your primary care doctor or return to the ER if symptoms worsen. Print Language: Lao Disposition Disposition: Home, Self Care Discharge Date/Time: 06/22/24 17:08
--- NOTE | 2024-06-22 16:15 | RAD_ITS ---
INDICATION: chest pain EXAMINATION/TECHNIQUE: X-RAY - XR Chest 2 Views COMPARISON: [06/07/2022 FINDINGS: LINES/DEVICES: None. LUNGS: No consolidation, edema or effusion. No pneumothorax. MEDIASTINUM AND CARDIOVASCULAR STRUCTURES: Cardiac silhouette not enlarged. Central airways and mediastinal contour are unremarkable. BONES AND SOFT TISSUES: Mild scoliosis. RAD/Chest PA and Lateral IMPRESSION: No radiographic evidence of acute cardiopulmonary disease. Electronically Signed: Melvin Tomlinson DO at 16:36 EST ,
[2024-06-22 16:29] LABS: Absolute Neutrophil Count 6.1 X10^3/uL (2.0-7.7); Basophil# 0.05 X10^3/uL; Basophil% 0.5 % (0-1); Eosinophil# 0.13 X10^3/uL; Eosinophils% 1.3 % (0-5); Hematocrit 39.4 % (37-47); Hemoglobin 13.3 g/dL (12.0-15.0); Lymphocyte % 27.2 % (19-41); Mean Corp Hgb Conc 33.8 g/dL (32-36); Mean Platelet Vol. 11.8 fl (6.2-12.0); Monocyte# 0.94 X10^3/uL; Monocyte% 9.5 % (0-10); NRBC Flagged by Analyzer 0 % (0-5); Neutrophil # 6.07 X10^3/uL (2.7-7.7); Neutrophil % 61.1 % (47-70); Platelet Count 273 K/mm3 (150-450); RBC Distribution Width CV 13.2 % (11.6-14.6); RBC Distribution Width SD 41.1 fl (35.1-43.9); Red Blood Count 4.58 M/mm3 (4.2-5.4); White Blood Count 9.9 K/mm3 (4.4-11.0)
[2024-06-22 16:38] LABS: Anion Gap 6 (5-15); BUN 6 mg/dL (7-18); BUN/Creat Ratio 8.8 RATIO (10-20); Chloride 110 mmol/L (98-107); Creatinine, Serum 0.68 mg/dL (0.55-1.02); EST Glomerular Filtration Rate 104 mL/min (>60); Est Glom Filt Rate - Afr Amer 126 mL/min (>60); Estimated Creatinine Clearance 102.87 ml/min; Glucose 103 mg/dL (74-106); Potassium 3.4 mmol/L (3.5-5.1); Sodium Level 142 mmol/L (136-145); Troponin-I HS (w/2H Reflex) < 3 pg/mL (3.0-54.0)
[2024-06-22 17:00] VITALS: BP 122/92
[2024-06-22 17:07] VITALS: BP 122/92; PULSE 76; RESP 16; TEMP 36.6; O2SAT 99
[2024-06-22 18:17] LABS: Reflex Troponin-HS? (from REC) Y
--- OUTSIDE RECORDS SUMMARY | 2024-06-22 19:40 | XMS RPT_ITS | CCD ---
Author Organization [place] [employer] [facility] Results Test Name Value Interpretation Reference Range Facility [facility] 03-25-2022 ALLIED HEALTH HNO ID: [id number] Author: RT Thomas(R) Service: Radiology Author Type: Technologist Type: Allied Health Filed: 03/25/2022 8:21 PM Note Text: Radiology Service Progress Note PATIENT NAME: Silvia Andres DATE OF SERVICE: March 25, 2022 TIME: 8:21 PM PATIENT IDENTITY VERIFICATION COMPLETED USING TWO (2) IDENTIFIERS: Name and Date of confirmed by patient verbally and Name and Date of confirmed by identification band. FALL SCREENING: Has the patient had 2 falls in the last year or 1 fall with injury or currently using an Ambulatory Assistive Device (Walker, Cane, Wheelchair, Crutches, etc.)? Emergency Room Patient: Screened in ED PATIENT GENDER DATA: Female. status: : No status: NO. PATIENT RELEVANT IMPLANT DATA REVIEWED: Not Applicable RADIOLOGY DEPARTMENT: General X-ray: Exam(s) Completed: Chest X-Ray PERIPHERAL IV DATA: Not applicable SIGNED BY: RT Thomas(R) March 25, 2022 8:21 PM Normal [facility] Basic metabolic 2000 panelon 03-25-2022 Anion gap [Moles/Vol] 8 mmol/L Normal 8-16 [facility] Comment on above: Order Comment: Speci men Type: BLOOD SPECIMEN Ordering Facility: [facility] Address: [address] [place] [address] [place] [address] Performed By: #### 2 4321-2 #### [facility] CLIA [id number] [address] [place] [address] [place] Calcium [Mass/Vol] 8.2 mg/dL Low 8.5-10.1 [facility] Comment on above: Order Comment: Speci men Type: BLOOD SPECIMEN Ordering Facility: [facility] Address: [address] [place] [address] Performed By: #### 2 4321-2 #### [facility] CLIA [id number] [address] [place] [address] [place] Chloride [Moles/Vol] 101 mmol/L Normal 98-107 [facility] Comment on above: Order Comment: Speci men Type: BLOOD SPECIMEN Ordering Facility: [facility] Address: [address] [place] [address] Performed By: #### 2 4321-2 #### [facility] CLIA [id number] [address] [place] [address] [place] CO2 [Moles/Vol] 29 mmol/L Normal 21-32 [facility] Comment on above: Order Comment: Speci men Type: BLOOD SPECIMEN Ordering Facility: [facility] Address: [address] [place] [address] Performed By: #### 2 4321-2 #### [facility] CLIA [id number] [address] [place] [address] [place] Creatinine [Mass/Vol] 0.69 mg/dL Normal 0.51-0.95 [facility] Comment on above: Order Comment: Speci men Type: BLOOD SPECIMEN Ordering Facility: [facility] Address: [address] [place] [address] Performed By: #### 2 4321-2 #### [facility] CLIA [id number] [address] [place], [place] [id number] [place] ESTIMATED GLOMERULAR FILTRATION RATE 118 mL/min/1.73m??? Normal >=60 [facility] Comment on above: Order Comment: Speci men Type: BLOOD SPECIMEN Ordering Facility: [facility] Address: [address] [place] [address] Result Comment: Melanie mated Glomerular Filtration Rate (eGFR) is calculated using the 2020 CKD-EPI creatinine equation. This equation utilizes serum creatinine, sex, and age as parameters. The creatinine assay has traceable calibration to isotope dilution-mass spectrometry. Refer to KDIGO guidelines for clinical interpretation. In patients with unstable renal function, e.g. those with acute kidney injury, the eGFR may not accurately reflect actual GFR. Performed By: #### 2 4321-2 #### [facility] CLIA [id number] [address] [place] [address] [place] Glucose [Mass/Vol] 112 mg/dL High 70-99 [facility] Comment on above: Order Comment: Shanice curry Type: BLOOD SPECIMEN Ordering Facility: [facility] Address: [address] [address] Result Comment: The [place] Diabetes Association (ADA) provides guidance for cutoff values for fasting glucose and random glucose. The ADA defines fasting as no caloric intake for at least 8 hours. Fasting plasma glucose results between 100 to 125 mg/dL indicate increased risk for diabetes (prediabetes). Fasting plasma glucose results greater than or equal to 126 mg/dL meet the criteria for diagnosis of diabetes. In the absence of unequivocal hyperglycemia, results should be confirmed by repeat testing. In a patient with classic symptoms of hyperglycemia or hyperglycemic crisis, random plasma glucose results greater than or equal to 200 mg/dL meet the criteria for diagnosis of diabetes. Reference: Standards of Medical Care in Diabetes 2016, [place] [employer] Association. Diabetes Care. 2016.39(Suppl 1). Performed By: #### 2 4321-2 #### [facility] CLIA [id number] [address] [place], [place] [id number] [place] Potassium [Moles/Vol] 3.5 mmol/L Normal 3.5-5.1 [facility] Comment on above: Order Comment: Shanice curry Type: BLOOD SPECIMEN Ordering Facility: [facility] Address: [address] [id number] Performed By: #### 2 4321-2 #### [facility] CLIA [id number] [address] [place] [address] [place] Sodium [Moles/Vol] 138 mmol/L Normal 136-145 [facility] Comment on above: Order Comment: Shanice curry Type: BLOOD SPECIMEN Ordering Facility: [facility] Address: [address] [address] Performed By: #### 2 4321-2 #### [facility] CLIA [id number] [address] [place] [address] [place] [facility] Urea nitrogen [Mass/Vol] 4 mg/dL Low 7-18 [facility] Comment on above: Order Comment: Speci men Type: BLOOD SPECIMEN Ordering Facility: [facility] Address: [address] [place] [address] Performed By: #### 2 4321-2 #### [facility] CLIA [id number] [address] [place] [address] [place] CBC W Auto Differential pane l (Bld)on 03-25-2022 Basophils (Bld) [#/Vol] 0.03 10*3/uL Normal <0.11 [facility] Comment on above: Order Comment: Speci men Type: BLOOD SPECIMEN Ordering Facility: [facility] Address: [address] [place] [address] Performed By: #### 5 7021-8 #### [facility] CLIA [id number] [address] [place] [address] [place] Basophils/100 WBC (Bld) 0.4 % Normal [facility] Comment on above: Order Comment: Speci men Type: BLOOD SPECIMEN Ordering Facility: [facility] Address: [address] [place] [address] Performed By: #### 5 7021-8 #### [facility] CLIA [id number] [address] [place] [address] [place] [facility] Differential cell count method Nom (Bld) Auto Normal [facility] Comment on above: Order Comment: Speci men Type: BLOOD SPECIMEN Ordering Facility: [facility] Address: [address] [place] [address] Performed By: #### 5 7021-8 #### [facility] CLIA [id number] [address] [place] [address] [place] Eosinophils (Bld) [#/Vol] 0.20 10*3/uL Normal <0.46 [facility] Comment on above: Order Comment: Speci men Type: BLOOD SPECIMEN Ordering Facility: [facility] Address: [address] [address] Performed By: #### 5 7021-8 #### [facility] CLIA [id number] [address] [place] [address] [place] Eosinophils/100 WBC (Bld) 2.7 % Normal [facility] Comment on above: Order Comment: Speci men Type: BLOOD SPECIMEN Ordering Facility: [facility] Address: [address] [address] Performed By: #### 5 7021-8 #### [facility] CLIA [id number] [address] [place] [address] [place] Erythrocyte distribution width (RBC) [Ratio] 13.6 % Normal 11.5-15.0 [facility] Comment on above: Order Comment: Speci men Type: BLOOD SPECIMEN Ordering Facility: [facility] Address: [address] [place] [address] Performed By: #### 5 7021-8 #### [facility] CLIA [id number] [address] [place] [address] [place] Hematocrit (Bld) [Volume fraction] 38.4 % Normal 36.0-46.0 [facility] Comment on above: Order Comment: Speci men Type: BLOOD SPECIMEN Ordering Facility: [facility] Address: [address] [address] Performed By: #### 5 7021-8 #### [facility] CLIA [id number] [address] [place] [address] [place] Hemoglobin (Bld) [Mass/Vol] 12.7 g/dL Normal 11.5-15.5 [facility] Comment on above: Order Comment: Speci men Type: BLOOD SPECIMEN Ordering Facility: [facility] Address: [address] [address] Performed By: #### 5 7021-8 #### [facility] CLIA [id number] [address] [place] Lymphocytes (Bld) [#/Vol] 2.38 10*3/uL Normal 1.00-4.00 [facility] Comment on above: Order Comment: Speci men Type: BLOOD SPECIMEN Ordering Facility: [facility] Address: [address] [place] [address] Performed By: #### 5 7021-8 #### [facility] CLIA [id number] [address] [place] [address] [place] Lymphocytes/100 WBC (Bld) 32.4 % Normal [facility] Comment on above: Order Comment: Speci men Type: BLOOD SPECIMEN Ordering Facility: [facility] Address: [address] [place] [address] Performed By: #### 5 7021-8 #### [facility] CLIA [id number] [address] [place] [address] [place] MCH (RBC) [Entitic mass] 28.9 pg Normal 26.0-34.0 [facility] Comment on above: Order Comment: Speci men Type: BLOOD SPECIMEN Ordering Facility: [facility] Address: [address] [place] [address] Performed By: #### 5 7021-8 #### [facility] CLIA [id number] [address] [place] [address] [place] MCHC (RBC) [Mass/Vol] 33.1 g/dL Normal 30.5-36.0 [facility] Comment on above: Order Comment: Speci men Type: BLOOD SPECIMEN Ordering Facility: [facility] Address: [address] [place] [address] Performed By: #### 5 7021-8 #### [facility] CLIA [id number] [address] [place] [address] [place] MCV (RBC) [Entitic vol] 87.5 fL Normal 80.0-100.0 [facility] Comment on above: Order Comment: Speci men Type: BLOOD SPECIMEN Ordering Facility: [facility] Address: [address] [place] [address] Performed By: #### 5 7021-8 #### [facility] CLIA [id number] [address] [place] [address] [place] Monocytes (Bld) [#/Vol] 0.85 10*3/uL Normal <0.87 [facility] Comment on above: Order Comment: Speci men Type: BLOOD SPECIMEN Ordering Facility: [facility] Address: [address] [place] [address] Performed By: #### 5 7021-8 #### [facility] CLIA [id number] [address] [place] [address] [place] Monocytes/100 WBC (Bld) 11.6 % Normal [facility] Comment on above: Order Comment: Speci men Type: BLOOD SPECIMEN Ordering Facility: [facility] Address: [address] [place] [address] Performed By: #### 5 7021-8 #### [facility] CLIA [id number] [address] [place] [address] [place] Neutrophils (Bld) [#/Vol] 3.88 10*3/uL Normal 1.45-7.50 [facility] Comment on above: Order Comment: Speci men Type: BLOOD SPECIMEN Ordering Facility: [facility] Address: [address] [place] [address] Performed By: #### 5 7021-8 #### [facility] CLIA [id number] [address] [place], [place] [address] [place] Neutrophils/100 WBC (Bld) 52.9 % Normal [facility] Comment on above: Order Comment: Speci men Type: BLOOD SPECIMEN Ordering Facility: [facility] Address: [address] [place] [address] Performed By: #### 5 7021-8 #### [facility] CLIA [id number] [address] [place] [address] [place] Platelet mean volume (Bld) [Entitic vol] 10.9 fL Normal 9.0-12.7 [facility] Comment on above: Order Comment: Speci men Type: BLOOD SPECIMEN Ordering Facility: [facility] Address: [address] [place] [address] Performed By: #### 5 7021-8 #### [facility] CLIA [id number] [address] [place] [id number] [place] [address] [place] Platelets (Bld) [#/Vol] 257 10*3/uL Normal 150-400 [facility] Comment on above: Order Comment: Speci men Type: BLOOD SPECIMEN Ordering Facility: [facility] Address: [address] [place] [address] Performed By: #### 5 7021-8 #### [facility] CLIA [id number] [address] [place] [address] RBC (Bld) [#/Vol] 4.39 10*6/uL Normal 3.90-5.20 [facility] Comment on above: Order Comment: Speci men Type: BLOOD SPECIMEN Ordering Facility: [facility] Address: [address] [place] [address] Performed By: #### 5 7021-8 #### [facility] CLIA [id number] [address] [place] [address] [place] WBC (Bld) [#/Vol] 7.34 10*3/uL Normal 3.70-11.00 [facility] Comment on above: Order Comment: Speci men Type: BLOOD SPECIMEN Ordering Facility: [facility] Address: [address] [place] [address] Performed By: #### 5 7021-8 #### [facility] CLIA [id number] [address] [place] [address] [facility] ED NOTEon 03-25-2022 ED NOTE HNO ID: [id number] Author: Shauna Dietz RN Service: Emergency Medicine Author Type: Registered Nurse Type: ED Notes Filed: 03/25/2022 7:48 PM Note Text: Patient presents to the ED with left sided chest pain since yesterday. It had been intermittent, but has become more constant in the last 6 hours. She is also having intermittent left arm numbness. Patient's uncle from a heart attack at age 32. Denies any PMH of any heart problems. Normal [facility] ED PROV NOTEon 03-25-2022 ED PROV NOTE HNO ID: [id number] Author: Immanuel Mtz MD Service: Emergency Medicine Author Type: Physician Type: ED Provider Notes Filed: 03/25/2022 10:40 PM Note Text: Attending Note I evaluated the patient and personally participated in the linn components. I agree with the resident's findings and plan as documented and have discussed the case and management of the patient's care with the resident. PE: Patient is well-appearing found sitting up in bed. She appears in no acute distress. She is awake and alert. Answering questions appropriately. Heart is regular rate rhythm. Lungs are clear and equal. There is no pedal edema bilaterally. No calf edema bilaterally. Patient is a 31-year-old female who presents with left-sided chest pain. States that it first came on last evening. She was just at rest and nothing seems to bring it on. It did go away but now has been there consistently for about the past 6 hours. Again nothing seems to bring on this time as well. She states she has been having little bit of intermittent numbness feeling in her left arm. She denies shortness of breath. Denies nausea. Nothing seems to make it any worse at all. Movement does not seem to change it and taking a deep breath does not seem to change it. She has not noted any unusual leg swelling or calf pain. Patient has no history of hypertension, diabetes, high cholesterol. She does state that she has a family history of an uncle that from a heart attack in his 30s. Patient is clinically well-appearing. Vital signs are unremarkable. EKG shows a normal sinus rhythm with a sinus arrhythmia. Nondiagnostic for acute ischemic changes. Plan at this time is to continue to observe. Obtain cardiac labs since she has had constant symptoms now for about 6 hours. Also chest x-ray. Clinically I have low suspicion for PE. Signature: Immanuel Mtz MD Date: 03/25/2022 Time: 8:23 PM Immanuel Mtz MD 03/25/22 4738 Normal [facility] ED PROV NOTE HNO ID: [id number] Author: Immanuel Mtz MD Service: Emergency Medicine Author Type: Physician Type: ED Provider Notes Filed: 03/25/2022 10:40 PM Note Text: ED Provider Note Patient Name: Silvia Andres : 1990 SERVICE DATE: 03/25/22 History Patient presents with: Chest Pain Patient without significant medical history presenting for concern of chest pain. Patient states for the past couple of days she has had left anterior chest pain intermittently without exacerbating relieving factors. States blood 6 hours has been constant and worsening. States it feels like a sharp and stabbing pain. No similar pain to this previously. No associated chest pain, shortness of breath, lightheadedness, diaphoresis, nausea or vomiting, back pain. No history of PE or DVT. No recent trauma, surgery or immobilization. No hemoptysis. No unilateral leg swelling. Denies estrogen use. No known malignancy. No past medical history on file. No past surgical history on file. No family history on file. Social History Tobacco Use Smoking status: Every Day Types: Cigarettes Smokeless tobacco: Not on file Substance and Sexual Activity Alcohol use: Never Drug use: Never Sexual activity: Not on file ALLERGIES Allergen Reactions Penicillin G Anaphylaxis Review of Systems Constitutional: Negative for activity change, fatigue and fever. HENT: Negative for congestion, rhinorrhea and sore throat. Eyes: Negative for photophobia, discharge and visual disturbance. Respiratory: Negative for cough, shortness of breath and wheezing. Cardiovascular: Positive for chest pain. Negative for palpitations and leg swelling. Gastrointestinal: Negative for abdominal pain, diarrhea, nausea and vomiting. Endocrine: Negative for cold intolerance, heat intolerance and polydipsia. Genitourinary: Negative for difficulty urinating, dysuria and urgency. Musculoskeletal: Negative for arthralgias, back pain, myalgias and neck pain. Skin: Negative for pallor, rash and wound. Neurological: Negative for syncope, numbness and headaches. Physical Exam Vitals [03/25/221947] BP Pulse Temp Temp src Resp SpO2 Weight Height 123/91 85 36.6 ?C (97.8 ?F) Temporal 14 99 % 56.2 kg (124 lb) -- Physical Exam Vitals and nursing note reviewed. Constitutional: General: She is not in acute distress. Appearance: Normal appearance. She is not ill-appearing or toxic-appearing. HENT: Head: Normocephalic and atraumatic. Nose: Nose normal. Mouth/Throat: Mouth: Mucous membranes are moist. Pharynx: Oropharynx is clear. No oropharyngeal exudate or posterior oropharyngeal erythema. Eyes: General: No scleral icterus. Extraocular Movements: Extraocular movements intact. Conjunctiva/sclera: Conjunctivae normal. Cardiovascular: Rate and Rhythm: Normal rate and regular rhythm. Pulses: Normal pulses. Heart sounds: Normal heart sounds. No murmur heard. No gallop. Pulmonary: Effort: Pulmonary effort is normal. No respiratory distress. Breath sounds: Normal breath sounds. No wheezing, rhonchi or rales. Abdominal: General: Abdomen is flat. Palpations: Abdomen is soft. There is no mass. Tenderness: There is no abdominal tenderness. There is no guarding or rebound. Musculoskeletal: General: Normal range of motion. Cervical back: Normal range of motion and neck supple. No rigidity. Right lower leg: No edema. Left lower leg: No edema. Lymphadenopathy: Cervical: No cervical adenopathy. Skin: General: Skin is warm and dry. Neurological: General: No focal deficit present. Mental Status: She is alert and oriented to person, place, and time. Mental status is at baseline. Sensory: No sensory deficit. Psychiatric: Mood and Affect: Mood normal. Behavior: Behavior normal. Diagnostic Testing ED Labs Ordered and Reviewed CBC + DIFF BASIC METABOLIC PNL TROPONIN I Procedures ED Course / Clinical Impression Clinical Impressions as of 03/25/22 2239 Chest pain, unspecified type MDM / Disposition / Plan Patient presents with concerns of chest pain. On arrival to the emergency department patient is demonstrating normal vitals and is in no acute distress. Physical exam significant as described above. Considerations for this patient include musculoskeletal dysfunction, low concern for ACS but given significant family history will obtain cardiac work-up. Patient is PERC negative. Pain control provided. Labs returned demonstrate no acute pathology. Chest x-ray within normal limits and EKG demonstrates no acute ischemic changes. Heart score is 1. As patient has had 6 hours of constant pain, do not feel patient requires second troponin. Recommended continued supportive care at home with Tylenol and ibuprofen as needed for likely musculoskeletal discomfort. Patient discharged from the Emergency Department. I do not feel that the patient's evaluation reveals any ac (more content not included)... Normal [facility] EKGon 03-25-2022 Electrocardiogram Ventricular Rate : 8 4 BPM Atrial Rate : 84 BPM P-R Interval : 178 ms QRS Duration : 108 ms Q-T Interval : 402 ms QTC Calculation(Bazett) : 475 ms Calculated P [place] : 79 degrees Calculated R [place] : 82 degrees Calculated T [place] : 53 degrees NORMAL SINUS RHYTHM WITH SINUS ARRHYTHMIA RIGHT ATRIAL ENLARGEMENT CANNOT RULE OUT ANTERIOR INFARCT , AGE UNDETERMINED ABNORMAL ECG NO PREVIOUS ECGS AVAILABLE Confirmed by ROSEANN BEARDEN ([id number]) on 04/05/2022 9:51:30 PM NAME : SILVIA ANDRES PID : [id number] : 1990 Gender : Female Race : ORD : Procedure Date : Mar 25 2022 19:52:40 Edit Date : Apr 05 2022 21:51:32 Diagnosis: NORMAL SINUS RHYTHM WITH SINUS ARRHYTHMIA RIGHT ATRIAL ENLARGEMENT CANNOT RULE OUT ANTERIOR INFARCT , AGE UNDETERMINED ABNORMAL ECG NO PREVIOUS ECGS AVAILABLE Confirmed by ROSEANN BEARDEN ([id number]) on 04/05/2022 9:51:30 PM Test Reason : Location : 148 : [facility] 6 Overread By : ROSEANN BEARDEN Edited By : ROSEANN BEARDEN Referred By : , Acquired by : ELINA LATHAM Normal [facility] HCG Preg Ur Qlon 03-25-2022 HCG ( test) Ql (U) Negative Normal Negative [facility] Comment on above: Order Comment: Speci men Type: URINE SPECIMEN Ordering Facility: [facility] Address: [address] [place], [place] [address] Result Comment: This test is intended to aid in the early detection of . Very dilute urine samples, as indicated by a low specific gravity, may not contain provider service representative levels of hCG. This test detects intact hCG only. This test does not reliably detect hCG degradation products, including free-beta subunit and beta-core fragment. Therefore, this test may show reduced reactivity in urine after 8 weeks gestation. A number of conditions other than , including trophoblastic disease and certain non-trophoblastic neoplasms cause elevated levels of hCG. As with any assay employing mouse antibodies, the possibility exists for interference by human anti-mouse antibodies (HAMA) in the specimen. The test provides a presumptive diagnosis for . Performed By: #### 2 106-3 #### [facility] CLIA [id number] [address] [place] [address] [facility] [place] TROPONIN Ion 03-25-2022 Troponin I.cardiac [Mass/Vol] 0.000 ng/mL Normal <0.040 [facility] Comment on above: Order Comment: Speci men Type: BLOOD SPECIMEN Ordering Facility: [facility] Address: [address] [place] [address] Performed By: #### T ROP #### [facility] CLIA [id number] [address] [place] [id number] [facility] XR CHEST 2V FRONTAL/LATon XR CHEST 2V FRONTAL/LAT * * *Final Report* * * DATE OF EXAM: Mar 25 2022 8:49PM [id number] - XR CHEST 2V FRONTAL/LAT / PROCEDURE REASON: Chest pain, nonspecific * * * * Physician Interpretation * * * * EXAMINATION: CHEST RADIOGRAPH (2 VIEW FRONTAL and LATERAL) CLINICAL HISTORY: Chest pain, nonspecific MQ: [id number] EXAM DATE/TIME: 03/25/2022 8:49 PM COMPARISON: No relevant prior studies available. RESULT: Lines, tubes, and devices: None. Lungs and pleura: No consolidation. No lung mass. No pleural effusion. No pneumothorax. Cardiomediastinal silhouette: Normal cardiomediastinal silhouette. Bones and soft tissues: There is minimal scoliosis of the upper thoracic spine and there are bilateral nipple pins. IMPRESSION: Unremarkable exam with no acute radiographic abnormality. Advanced Manager: PSCB Transcribe Date/Time: Mar 25 2022 9:00P Dictated by : DONNIE CRISTINA MD This examination was interpreted and the report reviewed and electronically signed by: DONNIE CRISTINA MD on Mar 25 2022 9:01PM EST [id number] Normal [facility] Summary Purpose Family History No Family History Records Found Advance Directives No Advanced Directives Records Found Additional Source Comments INFORMATION SOURCE (unrecogn ized section and content) DATE CREATED AUTHOR 04/12/2022 [facility] FOR RECORDS PERTAINING TO PATIENTS WHO ARE OR HAVE BEEN ENROLLED IN A CHEMICAL DEPENDENCY/SUBSTANCEABUSE PROGRAM, SOME INFORMATION MAY BE OMITTED. This clinical summary was aggregated from multiple sources. Caution should be exercised in using it in the provision of clinical care. This summary normalizes information from multiple sources, and as a consequence, information in this document may materially change the coding, format and clinical context of patient data. In addition, data may be omitted in some cases. CLINICAL DECISIONS SHOULD BE BASED ON THE PRIMARY CLINICAL RECORDS. [facility]. provides no warranty or guarantee of the accuracy or completeness of information in this document.
== END 2024-06-22 17:08 | disposition home or self-care (01) ==
PROVIDERS: Physician Assistant; Emergency Provider Emergency Medicine; Visit Provider Emergency Medicine
DX: R07.9 Chest pain, unspecified (principal); F17.210 Nicotine dependence, cigarettes, uncomplicated
CPT/HCPCS: 71046; 80048; 84484; 85025; 93005; 99285

== ENCOUNTER 2025-04-22 08:03 | Emergency (ER) | payer SELFPAY ==
[2025-04-22 08:05] VITALS: BP 177/125; PULSE 97; RESP 16; TEMP 37; O2SAT 99; BMI 16.8
--- NOTE | 2025-04-22 08:19 | CT_ITS ---
PROCEDURE: ABDOMEN/PELVIS WITHOUT CONT 04/22/2025 REASON FOR EXAM: RIGHT UPPER QUADRANT PAIN TECHNIQUE: Procedure Code: CTABDPEL Modality: CT Procedure: ABDOMEN/PELVIS WITHOUT CONT Noncontrast technique limits evaluation of the abdominal and pelvic viscera. Coronal and Sagittal reconstruction series were provided. One or more dose reduction techniques were used (e.g., Automated exposure control, adjustment of the mA and/or kV according to patient size, use of iterative reconstruction technique). RADIATION DOSE SUMMARY: CTDlvol: 6 mGy DLP: 285 mGycm COMPARISON: None FINDINGS: Lung bases: Clear Liver: Normal Gallbladder: Normal Spleen: Normal Pancreas: Normal Adrenals: Normal Kidneys: Normal. No collecting system dilation. Bladder: Normal Reproductive Organs: Retroverted uterus. Tampon in the vagina. No adnexal mass. Bowel: Stomach appears normal. Small bowel is normal. Colon appears normal. Appendix: Normal Lymph nodes: None appear enlarged. Vasculature: Normal Peritoneum / Retroperitoneum: No free air, free fluid or mass. Bones: No fracture CT/Abdomen/Pelvis without Cont IMPRESSION: No acute abnormality Reading Location: [facility]
--- NOTE | 2025-04-22 08:20 | ED.VIS.GI ---
HPI HPI - GI History of Present Illness Chief Complaint: Abd Pain Detail of Chief Complaint: Abdominal pain Informant: patient Abdominal Pain/Flank Pain Current Severity: 02/25 Narrative Narrative: Patient presents with right upper quadrant abdominal pain that started suddenly while at work today few hours ago. She denies similar episodes. She states she got nauseated and felt lightheaded when the pain hit. Rates her pain currently as a 7 out of 10. She also started her menstrual period this morning. Patient also has had 5 watery stools this morning. She denies fevers or chills or sweats. She denies dysuria urgency or frequency. No history of kidney stones. Patient states that she was told during one of her C-sections that she had a bad gallbladder but then had testing for it and saw that she may have had a HIDA scan which was normal. She denies recently having pain with eating. [facility] Medical History Asthma Endometriosis Home Medications ?Medication ?Instructions ?Recorded ?Last Taken ?Type NK 06/22/24 Unknown History Allergy/AdvReac Type Severity Reaction Status Date / Time bee pollen Allergy Severe Anaphylaxis Verified 04/22/25 08:05 shellfish derived Allergy Severe Anaphylaxis Verified 04/22/25 08:05 Penicillins (PCN) Allergy Anaphylaxis Verified 04/22/25 08:05 Social History (Updated 04/22/25 @ 08:11 by Sharon Rodriguez) housing: house Smoking Status: Current every day smoker tobacco type: cigarettes ROS ROS ED Review of Systems ROS Unobtainable: other Constitutional Constitutional ED: Reports lethargy; Denies chills, fever(s), sweats or weight loss Eyes Eyes: Denies blurry vision, change in vision or diplopia ENT ENT ED: Denies rhinorrhea or sore throat Cardiovascular Cardiovascular: Denies chest pain, orthopnea or racing heartbeat Respiratory/Chest Respiratory/Chest: Denies cough, dyspnea, dyspnea on exertion, orthopnea or sputum Gastrointestinal Gastrointestinal: Reports abdominal pain, diarrhea and nausea; Denies vomiting Genitourinary Genitourinary ED: Denies dysuria, hematuria or urinary frequency Musculoskeletal Musculoskeletal: Denies arthralgias, back pain, myalgias or neck pain Integumentary Denies abscess, Abrasions or rash Neurologic Neurologic: Denies headache(s) or weakness Psychiatric Psychiatric: Denies anxiety, depression or suicidal thoughts Endocrine Endocrinology: Denies polydipsia, polyphagia or polyuria Hematologic/Lymphatic Hematologic/Lymphatic: Denies easy bleeding, easy bruising or lymphadenopathy Allergic/Immunologic Allergic/Immunologic ED: Denies mouth swelling, tongue swelling or urticaria EXAM Physical Exam Const Vital Signs: 04/22/25 08:05 04/22/25 10:04 Temperature 98.6 F Temperature Source Oral Pulse Rate 97 70 Respiratory Rate 16 18 Blood Pressure 177/125 H 128/80 H Blood Pressure Mean 142 96 Pulse Ox 99 98 Oxygen Delivery Method Room Air Positive well nourished and well developed General Appearance ED: well developed and NAD HEENT Reports TM's clear and moist mucous membranes normocephalic and atraumatic; Negative for trauma or tenderness Tympanic Membrane ED: Yes TM's clear Eyes PERRL and EOMs intact bilaterally General Eye ED: Negative for pale conjunctiva or scleral icterus Neck no lymphadenopathy, supple and no JVD General: Negative for tenderness Chest Wall inspection of chest normal and palpation of chest normal Chest: Negative for tenderness Resp normal respiratory effort and clear to auscultation bilaterally Effort and Inspection: Negative for respiratory distress or pain with movement Auscultation: Negative for rhonchi, wheezes or diminished lung sounds Cardio regular rate, regular rhythm, S1 normal heart sound, S2 normal heart sound and no murmurs Peripheral Pulses: pulses 2+ throughout GI normal to inspection, nondistended, normoactive bowel sounds, soft to palpation, non-distended and no masses GI Narrative: Tenderness to palpation over the right upper quadrant with some mild guarding. There is no rebound, rigidity, or apparent signs. No mass palpated Back/Spine no CVA tenderness and no thoracic nor lumbar tenderness Extremity normal to inspection General Extremety ED: Negative for edema General Extremity: Negative for edema Neuro oriented x3, CN's II-XII intact bilaterally, no sensory deficits noted and gait normal Sensorium / Orientation: awake, alert, oriented to person, oriented to place and oriented to time Motor Exam: strength 5/5 throughout and strength abnormal Psych mental status grossly normal Skin no rashes or lesions noted and no wounds MDM MDM MDM Narrative Medical decision making narrative: Patient presents with abdominal pain rather sudden onset. Clinically looks well. IV line established. CBC with differential obtained showing a 6.7 with hemoglobin 14.5 and platelet count of 363. Chemistries unremarkable. LFTs showed minimal elevation in the AST at 36 and ALT was 20 and alk phos was 112. Lipase was normal at 44. hCG was negative. CT scan of the abdomen pelvis was normal. Urinalysis was unremarkable. On repeat exam her pain is markedly improved. States at rest she really does not have any discomfort currently. Etiology of her abdominal pain unclear. Patient will be referred to [facility] as she would like to stop drinking alcohol. She does not want to go through detox here at the hospital. Lab Data Attestation: I reviewed the patient's lab results. Labs: Laboratory Results - last 24 hr 04/22/25 04/22/25 08:22 09:49 WBC 6.7 RBC 4.90 Hgb 14.5 Hct 41.8 MCV 85.3 MCH 29.6 MCHC 34.7 RDW Std Deviation 50.1 H RDW Coeff of Nish 15.9 H Plt Count 363 MPV 10.4 Immature Gran % (Auto) 0.300 Neut % (Auto) 58.9 Lymph % (Auto) 27.2 [place] % (Auto) 11.9 H Eos % (Auto) 0.7 Baso % (Auto) 1.0 Absolute Neuts (auto) 4.0 Absolute Lymphs (auto) 1.83 Nucleated RBC % 0 Sodium 137 Potassium 3.9 Chloride 99 Carbon Dioxide 25.0 Anion Gap 14 BUN 5 Creatinine 0.74 Estim Creat Clear Calc 94.22 Est GFR (MDRD) Non-Af 108 BUN/Creatinine Ratio 6.1 L Glucose 99 Calcium 8.9 Total Bilirubin 0.33 AST 36 H ALT 20 Alkaline Phosphatase 112 H Total Protein 7.4 Albumin 4.7 Globulin 2.7 Albumin/Globulin Ratio 1.8 Lipase 44 Serum , Qual NEGATIVE Urine Color Yellow Urine Clarity Clear Urine pH 8.0 Ur Specific [place] 1.010 Urine Protein 15 H Urine Glucose (UA) Normal Urine Ketones Negative Urine Occult Blood Negative Urine Nitrite Negative Urine Bilirubin Negative Urine Urobilinogen Normal Ur Leukocyte Esterase Negative Urine RBC 0 SEEN Urine WBC 0-5 SEEN Ur Squamous Epith Cells 0-5 SEEN Urine Bacteria 0 SEEN Urine Mucus 0 SEEN Radiography Diagnostic Testing: Clinical Impression(s) from Imaging Studies Abdomen/Pelvis CT 04/22/25 08:19 IMPRESSION: No acute abnormality Reading Location: [facility] Discharge Plan Triage Chief Complaint: Abd Pain ED Provider: Vickie Nogueira Dx/Rx/DC Orders Clinical Impression: Abdominal pain Instructions: ED Abdominal Pain Unkn Cause Fem Prescriptions: No Action NK Primary Care Provider: Care Physician,No Primary Referrals: Care Physician,No Primary [Primary Care Provider] - [facility] [Non-Staff] - As Needed Print Language: [place] Disposition Disposition: Home, Self Care
[2025-04-22] MEDS: 0.9% Normal Saline (1000mL) 1,000 ML 125 ML IV (08:31)
[2025-04-22 08:45] LABS: Hematocrit 41.8 % (37-47); Hemoglobin 14.5 g/dL (12.0-15.0); Immature Granulocytes Count 0.020 X10^3/uL (0.0-0.0); Mean Corp Hgb Conc 34.7 g/dL (32-36); Mean Corpuscular Volume 85.3 fL (81-99); Mean Platelet Vol. 10.4 fl (6.2-12.0); NRBC Flagged by Analyzer 0 % (0-5); Platelet Count 363 K/mm3 (150-450); RBC Distribution Width CV 15.9 % (11.6-14.6); RBC Distribution Width SD 50.1 fl (35.1-43.9); Red Blood Count 4.90 M/mm3 (4.2-5.4); White Blood Count 6.7 K/mm3 (4.4-11.0)
[2025-04-22 08:58] LABS: Internal QC Validated? YES +Cl - CLEAR BKGD; Pregnancy, Serum, hCG Quali. NEGATIVE Negative; Record Kit Lot#, Serum Preg. 0000947241
[2025-04-22 09:23] LABS: AST(SGOT) 36 U/L (<=31); Alanine Aminotransfer ALT/SGPT 20 U/L (<=34); Albumin, Serum 4.7 g/dL (3.5-5.0); Alkaline Phosphatase 112 U/L (35-104); Anion Gap 14 (5-15); BUN 5 mg/dL (4-19); BUN/Creat Ratio 6.1 RATIO (10-20); Calcium,Total 8.9 mg/dL (7.6-11.0); Carbon Dioxide 25.0 mmol/L (21.0-32.0); Chloride 99 mmol/L (98-108); Estimated Creatinine Clearance 94.22 ml/min (50-250); Globulin 2.7 g/dL (2.2-4.2); Glucose 99 mg/dL (70-99); Lipase 44 U/L (13-75); Potassium 3.9 mmol/L (3.3-5.1)
[2025-04-22 09:54] LABS: Mucous, Urine 0 SEEN /hpf (<or=2+); Red Blood Cells-Urine 0 SEEN /hpf (0-5)
[2025-04-22 10:04] VITALS: BP 128/80; PULSE 70; RESP 18; O2SAT 98
[2025-04-22 10:07] LABS: Glucose, Dipstick Normal (Normal); Ketone-Dipstick Negative (Negative); Leukocyte Esterase-Dipstick Negative /ul (Negative); Nitrite-Dipstick Negative (Negative); Occult Blood-Urine Negative /ul (Negative); Protein-Dipstick 15 mg/dl (Negative); Specific Gravity, Urine 1.010 (1.002-1.030); Urine Bilirubin Dipstick Negative (Negative)
[2025-04-22 10:40] LABS: Color, Urine Yellow (Yellow)
[2025-04-22 10:42] LABS: Squamous Epithelial Cells - UA 0-5 SEEN /hpf (5-10)
--- NOTE | 2025-04-22 10:46 | CM.ED ---
Social work Reason for referral: resources Referral source: case find SW identified patient's lack of PCP and insurance and possible need for resources. SW entered patient's room, identifying self and role at [facility]. Patient accepted SW visit and accepted the following resources: [facility] Provider Directory, Isi Castano information, and how to apply for Medicaid. Karolyn Gold, LEAD RECREATION ASSISTANT, ELECTRONIC VIDEO GAMES SERVICER
[2025-04-22 10:50] VITALS: BP 128/80; PULSE 70; RESP 18; TEMP 37.1; O2SAT 98
== END 2025-04-22 10:54 | disposition home or self-care (01) ==
PROVIDERS: Emergency Provider Emergency Medicine; Visit Provider Emergency Medicine
DX: R10.11 Right upper quadrant pain (principal); F17.210 Nicotine dependence, cigarettes, uncomplicated
CPT/HCPCS: 74176; 80053; 81001; 83690; 84703; 85025; 96360; 96361; 99282

== ENCOUNTER 2025-06-10 20:09 | Emergency (ER) | payer SELFPAY ==
[2025-06-10] VITALS (13 sets, daily range): BP systolic 120–159; BP diastolic 86–112; PULSE 89–114; RESP 18; TEMP 36.7; O2SAT 80–100
--- OUTSIDE RECORDS SUMMARY | 2025-06-10 20:29 | XMS RPT_ITS | CCD ---
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 - Fully Assessed Reason for Visit: Sinus Problem [99] Cmt: sinus pressure and drainage x 2 days Primary Visit Diagnosis:Nasal congestion [R09.81] Order(s):oxymetazoline (AFRIN, OXYMETAZOLINE,) 0.05 % nasal sprayUse 2 Sprays in each nostril two times a day for 5 days.Disp: 22 mLRfl: 0 Prescriptions as of 06/23/2024 - oxymetazoline (AFRIN, OXYMETAZOLINE,) 0.05 % nasal spray Use 2 (more content not included)... Normal [facility] 12 Lead EKGon 06-22-2024 12 Lead EKG [facility] Cardiovascular Services [address] [place] [address] 12 Lead EKG 06/22/24 1603 MR#: [id number] Acct: [id number] Name: LIDIA ANDRES Rep #: [id number] : 1990 33 From: Juan Luis Levine MD Attending Dr: Status: DEP ER Ordering Dr: Jillian Samano Date: 06/22/24 Location: ED Sex: F C Admitted: Test Reason : CP Blood Pressure : */* mmHG Vent. Rate : 80 BPM Atrial Rate : 80 BPM P-R Int : 160 ms QRS Dur : 86 ms QT Int : 370 ms P-R-T Axes : 76 73 61 degrees QTcB Int : 426 ms Sinus rhythm with marked sinus arrhythmia Poor R wave progression borderline Confirmed by Juan Luis Levine ([id number]), visual effects editor SYDNEE KRUGER ([id number]) on 06/23/2024 9:19:40 AM Referred By: KOBI/YAJAIRA Confirmed By: Juan Luis Levine 06/23/24 0919 Date Juan Luis Levine MD CC: Dr. Manuel Sam, DO; YOHANNES Hightower; No Primary Care Physician Signed Normal [facility] Basic Metabolic Profile (BMP )on 06-22-2024 BUN/CRE 8.8 RATIO Low 10-20 [facility] Comment on above: Order Comment: 1Y Performed By: #### L 501.5425, L500.2500, L100.0100 ####[facility] [address] [place], [address] CA,Total 9.0 mg/dL Normal 8.5-10.1 [facility] Comment on above: Order Comment: 1Y Performed By: #### L 501.5425, L500.2500, L100.0100 ####[facility] [address], [address] Chloride [Moles/Vol] 110 mmol/L High 98-107 [facility] Comment on above: Order Comment: 1Y Performed By: #### L 501.5425, L500.2500, L100.0100 ####[facility] [address] [place], [address] CO2 [Moles/Vol] 27.0 mmol/L Normal 21.0-32.0 [facility] Comment on above: Order Comment: 1Y Performed By: #### L 501.5425, L500.2500, L100.0100 ####[facility] [address] [place], [address] Creatinine [Mass/Vol] 0.68 mg/dL Normal 0.55-1.02 [facility] Comment on above: Order Comment: 1Y Result Comment: The validity of the calculated GFR GFRAA in patients over 70 years has not been determined. Clinical correlation is essential. Performed By: #### L 501.5425, L500.2500, L100.0100 ####[facility] [address] [place], [address] ECRCL 102.87 ml/min Normal [facility] Comment on above: Order Comment: 1Y Performed By: #### L 501.5425, L500.2500, L100.0100 ####[facility] [address] [place], [address] EST GFR - AA 126 mL/min Normal >60 [facility] Comment on above: Order Comment: 1Y Result Comment: Afri can Senegalese GFR Calc Performed By: #### L 501.5425, L500.2500, L100.0100 ####[facility] [address] [place], [address] GAP 6 Normal 5-15 [facility] Comment on above: Order Comment: 1Y Performed By: #### L 501.5425, L500.2500, L100.0100 ####[facility] [address] [place], [address] GFR/1.73 sq M.predicted among non-blacks MDRD (S/P/Bld) [Vol rate/Area] 104 mL/min/{1.73_m2} Normal >60 [facility] Comment on above: Order Comment: 1Y Result Comment: Non- GFR Calc Performed By: #### L 501.5425, L500.2500, L100.0100 ####[facility] [address] [place], [address] Glucose [Mass/Vol] 103 mg/dL Normal 74-106 [facility] Comment on above: Order Comment: 1Y Result Comment: Fast ing Glucose result from 100 to 125 mg/dL suggests IMPAIRED HOMEOSTASIS per A.D.A. criteria. Performed By: #### L 501.5425, L500.2500, L100.0100 ####[facility] [address] [place], [address] Potassium [Moles/Vol] 3.4 mmol/L Low 3.5-5.1 [facility] Comment on above: Order Comment: 1Y Performed By: #### L 501.5425, L500.2500, L100.0100 ####[facility] [address] [place], [address] Sodium [Moles/Vol] 142 mmol/L Normal 136-145 [facility] Comment on above: Order Comment: 1Y Performed By: #### L 501.5425, L500.2500, L100.0100 ####[facility] [address], [address] Urea nitrogen [Mass/Vol] 6 mg/dL Low 7-18 [facility] Comment on above: Order Comment: 1Y Performed By: #### L 501.5425, L500.2500, L100.0100 ####[facility] [address] [place], [address] CBC W/Diff, Automatedon 11-0 4-4 Absolute Lymph 2.70 X10 3/uL Normal 0.83-4.51 [facility] Comment on above: Performed By: #### L 501.5425, L500.2500, L100.0100 ####[facility] [address] [place], [address] Absolute Neut 6.1 X10 3/uL Normal 2.0-7.7 [facility] Comment on above: Performed By: #### L 501.5425, L500.2500, L100.0100 ####[facility] [address] [place], [address] Basophils/100 WBC (Bld) 0.5 % Normal 0-1 [facility] Comment on above: Performed By: #### L 501.5425, L500.2500, L100.0100 ####[facility] [address] [place], [address] Eosinophils/100 WBC (Bld) 1.3 % Normal 0-5 [facility] Comment on above: Performed By: #### L 501.5425, L500.2500, L100.0100 ####[facility] [address] [place], [address] Erythrocyte distribution width (RBC) [Ratio] 13.2 % Normal 11.6-14.6 [facility] Comment on above: Performed By: #### L 501.5425, L500.2500, L100.0100 ####[facility] [address] [place], [address] Hematocrit (Bld) [Volume fraction] 39.4 % Normal 37-47 [facility] Comment on above: Performed By: #### L 501.5425, L500.2500, L100.0100 ####[facility] [address] [place], [address] Hemoglobin (Bld) [Mass/Vol] 13.3 g/dL Normal 12.0-15.0 [facility] Comment on above: Performed By: #### L 501.5425, L500.2500, L100.0100 ####[facility] [address] [place], [address] IG% 0.400 Normal 0.0-0.9 [facility] Comment on above: Result Comment: IG% - Immature Granulocytes (promyelocytes, myelocytes and metamyelocytes) > 1% indicates that a LEFT SHIFT is Present. Performed By: #### L 501.5425, L500.2500, L100.0100 ####[facility] [address] [place], [address] Lymphocytes/100 WBC (Bld) 27.2 % Normal 19-41 [facility] Comment on above: Performed By: #### L 501.5425, L500.2500, L100.0100 ####[facility] [address] [place], [address] MCH (RBC) [Entitic mass] 29.0 pg Normal 27.0-32.0 [facility] Comment on above: Performed By: #### L 501.5425, L500.2500, L100.0100 ####[facility] [address] [place], [address] MCHC (RBC) [Mass/Vol] 33.8 g/dL Normal 32-36 [facility] Comment on above: Performed By: #### L 501.5425, L500.2500, L100.0100 ####[facility] [address] [place], [address] MCV (RBC) [Entitic vol] 86.0 fL Normal 81-99 [facility] Comment on above: Performed By: #### L 501.5425, L500.2500, L100.0100 ####[facility] [address] [place], [address] Monocytes/100 WBC (Bld) 9.5 % Normal 0-10 [facility] Comment on above: Performed By: #### L 501.5425, L500.2500, L100.0100 ####[facility] [address] [place], [address] Neutrophils/100 WBC (Bld) 61.1 % Normal 47-70 [facility] Comment on above: Performed By: #### L 501.5425, L500.2500, L100.0100 ####[facility] [address] [place], [address] Nucleated RBC (Bld) [#/Vol] 0 10*3/uL Normal 0-5 [facility] Comment on above: Performed By: #### L 501.5425, L500.2500, L100.0100 ####[facility] [address] [place], [address] Platelet mean volume (Bld) [Entitic vol] 11.8 fL Normal 6.2-12.0 [facility] Comment on above: Performed By: #### L 501.5425, L500.2500, L100.0100 ####[facility] [address] [place], [address] Platelets (Bld) [#/Vol] 273 10*3/uL Normal 150-450 [facility] Comment on above: Performed By: #### L 501.5425, L500.2500, L100.0100 ####[facility] [address] [place], [address] RBC (Bld) [#/Vol] 4.58 10*6/uL Normal 4.2-5.4 [facility] Comment on above: Performed By: #### L 501.5425, L500.2500, L100.0100 ####[facility] [address] [place], [address] RDW SD 41.1 fl Normal 35.1-43.9 [facility] Comment on above: Performed By: #### L 501.5425, L500.2500, L100.0100 ####[facility] [address] [place], [address] WBC (Bld) [#/Vol] 9.9 10*3/uL Normal 4.4-11.0 [facility] Comment on above: Performed By: #### L 501.5425, L500.2500, L100.0100 ####[facility] [address] [place], [address] CNOVon 06-22-2024 CNOV Office Visit (UCWSTR ) LIDIA ANDRES ([id number]) 1990 F Date Time Provider Department 06/22/24 3:00 PM JAIME HUMMEL [facility] During your visit today, we recorded the following information about you: Temperature Pulse Respiration Blood pressure 98.3 degrees 120/minute 18/minute 122/70 Weight 52.4 kg Jaime Hummel MD 06/22/2024 3:55 PM Signed Patient presents with: Chest Congestion: cough, sob x 1 day HPI: Feeling short of breath since last night. Positive symptoms: Cough, Shortness of breath, intermittent stabbing Chest pain below her left breast, repeated dizzy spells, Nasal Congestion, Rhinorrhea Negative symptoms: Fever, Chills, Body Aches, Headache, Vomiting, Diarrhea, OTC: Dayquil Reports she feels anxious around people. PAST MEDICAL HISTORY Diagnosis Date Autism Childhood asthma Endometriosis Gestational diabetes PAST SURGICAL HISTORY Procedure Laterality Date SECTION HX LAPAROSCOPY DIAGNOSTIC MEDICATIONS: No current outpatient medications on file. No current facility-administered medications for this visit. ALLERGIES: ALLERGIES Allergen Reactions Penicillin G Anaphylaxis VITALS: BP 122/70 Pulse 120 Temp 36.8 ?C (98.3 ?F) Resp 18 Wt 52.4 kg (115 lb 8.3 oz) LMP 03/18/2022 SpO2 99% PHYSICAL EXAM: GEN: mildly ill appearing, alert, pleasant HEENT: PERRL, EOMI, conjunctiva clear Ears: canals clear. TMs without erythema, bulge, or effusion Sinuses: non-tender frontal sinus, non-tender maxillary sinuses Throat: moist mucous membranes, no erythema, no exudate Neck: supple, no thyromegaly, no lymphadenopathy HEART: regular rate and rhythm (pulse ~70 during initial exam, increases to 110s after ambulation), no murmurs LUNGS: clear to auscultation, no wheezes or crackles, no increased WOB ASSESSMENT/PLAN: 1. SOB (shortness of breath) - ICD9: 786.05, ICD10: R06.02 (primary diagnosis) 2. Left-sided chest pain - ICD9: 786.50, ICD10: R07.9 3. Dizziness - ICD9: 780.4, ICD10: R42 4. Acute cough - ICD9: 786.2, ICD10: R05.1 - XR CHEST 2V FRONTAL/LAT - no acute findings. Patient felt light-headed and short of breath after ambulation with finger tingling. She admits to temporary left chest pain during ambulation and that she has been having chest pain episodes for the last month. Her uncle of heart attack in his 30s. I recommended further evaluation in the emergency room to further assess for pulmonary embolism, acute coronary syndrome, and arrhythmia. Patient transported to [facility] ED by EMS. Jaime Hummel MD Referring Provider: SELF [200] Allergies As of Date: 06/22/2024 Noted Allergy Reaction PENICILLIN G 03/25/2022 10 - Anaphylaxis Date Reviewed: 06/22/2024 Reviewed by: Katerina Rodriguez MA - Fully Assessed Reason for Visit: Chest Congestion [236] Cmt: cough, sob x 1 day Primary Visit Diagnosis:SOB (shortness of breath) [R06.02] Other Visit Diagnoses:Left-sided chest pain [R07.9] Dizziness [R42] Acute cough [R05.1] Order(s):XR CHEST 2V FRONTAL/LAT [[id number]] Order #: [id number] FUTURE Problem List As Of Date: 06/22/2024 (None) Encounter Status:Closed by JAIME HUMMEL on 06/22/24 Normal [facility] Chest PA and Lateralon 06-22 Chest PA and Lateral [facility] Imaging Services [address] [place] [address] [id number] Chest PA and Lateral MR#: [id number] Acct: [id number] Name: LIDIA ANDRES Rep #: [id number] : 1990 F 33 From: Melvin Tomlinson DO PCP: Care Physician,No Primary Status: REG ER Study: Chest PA and Lateral Date of Exam: 06/22/24 Exam# [id number] Ordering Dr: Jillian Samano [id number] INDICATION: chest pain EXAMINATION/TECHNIQUE: X-RAY - XR Chest 2 Views COMPARISON: [06/07/2022 FINDINGS: LINES/DEVICES: None. LUNGS: No consolidation, edema or effusion. No pneumothorax. MEDIASTINUM AND CARDIOVASCULAR STRUCTURES: Cardiac silhouette not enlarged. Central airways and mediastinal contour are unremarkable. BONES AND SOFT TISSUES: Mild scoliosis. RAD/Chest PA and Lateral IMPRESSION: No radiographic evidence of acute cardiopulmonary disease. Electronically Signed: Melvin Tomlinson DO at 16:36 EST , CC: YOHANNES Hightower; No Primary Care Physician Type Cutter: Signed Normal [facility] Emergency Department Summary on 06-22-2024 Emergency Department Summary [facility] Medical Records Department [address] [place] [address] Emergency Department Summary 06/22/24 MR#: [id number] Acct: [id number] Name: LIDIA ANDRES Rep #: [id number] : 1990 33 From: Manuel Sam DO PCP: Care Physician,No Primary Status:DEP ER Location: ED HPI History of Present Illness Chief Complaint: Chest Pain Narrative Narrative: 33-year-old female with no significant past medical history sent in by urgent care for evaluation of chest pain. She states over the last months she has had intermittent sharp pain in the left side of her chest. It can last a couple seconds or up to a minute. She states the first episode was very painful but since then it was mild and she did not even really think much of it. Today at work sometime between 9 AM and 1 PM when she was walking around she started to feel lightheaded and had chest pain that was lasting longer, several minutes at a time, and also felt short of breath. She denies pain in her jaw or arms. She has no nausea or vomiting. She went to urgent care and then was given aspirin 325 mg and sent here for evaluation. She denies any personal cardiac history. She has had several family members on her maternal side have heart attacks and states her uncle was 32 and had an [place]. She smokes 1 pack/day of cigarettes since age 13. She has no history of DVT/PE, leg pain or swelling, recent surgery or travel, cough or hemoptysis. [facility] Medical History Asthma Endometriosis Home Medications ???Medication ???Instructions ???Recorded ???Last Taken ???Type NK 06/22/24 Unknown History Allergy/AdvReac Type Severity Reaction Status Date / Time Penicillins (PCN) Allergy Anaphylaxis Verified 06/22/24 15:56 Social History Smoking Status: Current every day smoker tobacco type: cigarettes ROS ROS ED ROS Narrative Constitutional: Negative for fever, chills, malaise. CVS: Positive for chest pain. Negative for palpitations, syncope. Respiratory: Positive for cough. GI: Negative for abdominal pain, nausea, vomiting. EXAM Physical Exam Narrative Exam Narrative: CONST: Patient sitting in no acute distress. EYES: Normal inspection. NECK: Normal inspection. RESP: No respiratory distress, CTAB. CVS: Regular rate and rhythm, no murmur, no gallop. ABD: Soft and nontender, no guarding or rebound, nondistended, no hepatosplenomegaly. SKIN: Color normal, no rash, warm, dry, intact. EXTREMITIES: Normal appearance, no pedal edema. NEURO: Alert and answering questions appropriately. PSYCH: Normal affect. Const Vital Signs: 06/22/24 15:56 06/22/24 16:02 06/22/24 17:00 Temperature 98.9 F Temperature Source Oral Pulse Rate 90 Respiratory Rate 18 Respiratory Effort Normal Non-Labored Blood Pressure 130/80 H 122/92 H Blood Pressure Mean 96 102 Pulse Ox 97 Oxygen Delivery Method Room Air 06/22/24 17:07 Temperature 98 F Temperature Source Pulse Rate 76 Respiratory Rate 16 Respiratory Effort Blood Pressure 122/92 H Blood Pressure Mean 102 Pulse Ox 99 Oxygen Delivery Method Physical Exam Const Vital Signs: 06/22/24 15:56 06/22/24 16:02 06/22/24 17:00 Temperature 98.9 F Temperature Source Oral Pulse Rate 90 Respiratory Rate 18 Respiratory Effort Normal Non-Labored Blood Pressure 130/80 H 122/92 H Blood Pressure Mean 96 102 Pulse Ox 97 Oxygen Delivery Method Room Air 06/22/24 17:07 Temperature 98 F Temperature Source Pulse Rate 76 Respiratory Rate 16 Respiratory Effort Blood Pressure 122/92 H Blood Pressure Mean 102 Pulse Ox 99 Oxygen Delivery Method Heart Score Score: 1 Heart Score History: Slightly/Non-Suspiciou s ECG: Normal Age: Risk Factors: 1 or 2 Risk Factors Troponin: Score: 1 MDM MDM MDM Narrative Medical decision making narrative: History gathered from: Patient and significant other Differential includes but not limited to: ACS, PE unlikely, GERD, anxiety Patient presents evaluation of chest pain and lightheadedness that started around 9 AM. She is also reporting intermittent chest pain over the last month lasting seconds to minutes. She was given aspirin by urgent care prior to arrival and states her symptoms have resolved. She appears well and nontoxic with normal vital signs. Her exam is unremarkable. EKG is normal sinus rhythm with no acute ischemic changes and troponin is less than 3. Basic labs are unremarkable. CXR shows no acute process. She is PERC negative so I did not order D-dimer. Since her pain started hours ago and has resolved and troponin (more content not included)... Normal [facility] L501.5425on 06-22-2024 TROPONIN-I HS < 3 Low 3.0-54.0 [facility] Comment on above: Order Comment: 1Y Result Comment: Plea se Note: New Test Units and Gender Specific Reference Ranges. For more information see Policy Stat Procedure [place] High Sensitivity Troponin (TNIH) and attachments. Performed By: #### L 501.5425, L500.2500, L100.0100 ####[facility] [address] [place], [address] XR CHEST 2V FRONTAL/LATon XR CHEST 2V FRONTAL/LAT * * *Final Report* * * DATE OF EXAM: Jun 22 2024 3:19PM WOX [id number] - XR CHEST 2V FRONTAL/LAT / PROCEDURE REASON: Acute cough * * * * Physician Interpretation * * * * EXAMINATION: CHEST RADIOGRAPH (2 VIEW FRONTAL and LATERAL) CLINICAL HISTORY: Acute cough MQ: XC2_6 EXAM DATE/TIME: 06/22/2024 3:19 PM COMPARISON: Chest x-ray dated 03/25/2022 RESULT: Lines, tubes, and devices: None. Lungs and pleura: No consolidation. No lung mass. No pleural effusion. No pneumothorax. Cardiomediastinal silhouette: Normal cardiomediastinal silhouette. Bones and soft tissues: Unremarkable. IMPRESSION: No acute radiographic abnormality. [facility] Trans[facility] Date/Time: Jun 22 2024 3:21P Dictated by : LIBRA GARCIA MD This examination was interpreted and the report reviewed and electronically signed by: LIBRA GARCIA MD on Jun 22 2024 3:21PM EST [id number] Normal [facility] XR Chest PA and Lateralon IMPRESSION: No acute radiographic abnormality. Type Cutter: [facility] Transcribe Date/Time: Jun 22 2024 3:21P Dictated by : LIBRA GARCIA MD This examination was interpreted and the report reviewed and electronically signed by: LIBRA GARCIA MD on Jun 22 2024 3:21PM EST DIVISION OF RADIOLOGY * * *Final Report* * * DATE OF EXAM: Jun 22 2024 3:19PM WOX [id number] - XR CHEST 2V FRONTAL/LAT / PROCEDURE REASON: Acute cough * * * * Physician Interpretation * * * * EXAMINATION: CHEST RADIOGRAPH (2 VIEW FRONTAL & LATERAL) CLINICAL HISTORY: Acute cough MQ: XC2_6 EXAM DATE/TIME: 06/22/2024 3:19 PM COMPARISON: Chest x-ray dated 03/25/2022 RESULT: Lines, tubes, and devices: None. Lungs and pleura: No consolidation. No lung mass. No pleural effusion. No pneumothorax. Cardiomediastinal silhouette: Normal cardiomediastinal silhouette. Bones and soft tissues: Unremarkable. DIVISION OF RADIOLOGY Provider, [facility] - 06/22/2024 * * *Final Report* * * DATE OF EXAM: Jun 22 2024 3:19PM WOX [id number] - XR CHEST 2V FRONTAL/LAT / PROCEDURE REASON: Acute cough * * * * Physician Interpretation * * * * EXAMINATION: CHEST RADIOGRAPH (2 VIEW FRONTAL & LATERAL) CLINICAL HISTORY: Acute cough MQ: [id number] EXAM DATE/TIME: 06/22/2024 3:19 PM COMPARISON: Chest x-ray dated 03/25/2022 RESULT: Lines, tubes, and devices: None. Lungs and pleura: No consolidation. No lung mass. No pleural effusion. No pneumothorax. Cardiomediastinal silhouette: Normal cardiomediastinal silhouette. Bones and soft tissues: Unremarkable. IMPRESSION IMPRESSION: No acute radiographic abnormality. Type Cutter: PAT Transcribe Date/Time: Jun 22 2024 3:21P Dictated by : LIBRA GARCIA MD This examination was interpreted and the report reviewed and electronically signed by: LIBRA GARCIA MD on Jun 22 2024 3:21PM EST [facility] Radiology Study observation (narrative) [facility] XR Chest PA and LateralOrder ed By: [facility] Provider on 06-22-2024 [facility] ALLIED HEALTHon 03-25-2022 ALLIED HEALTH HNO ID: [id number] Author: RT Thomas(R) Service: Radiology Author Type: Technologist Type: Allied Health Filed: 03/25/2022 8:21 PM Note Text: Radiology Service Progress Note PATIENT NAME: Lidia Andres DATE OF SERVICE: March 25, 2022 [...] Thomas(R) March 25, 2022 8:21 PM Normal [facility] Basic metabolic 2000 panelon 03-25-2022 Anion gap [Moles/Vol] 8 mmol/L Normal 8-16 [facility] Comment on above: Order Comment: Speci men Type: BLOOD SPECIMEN Ordering Facility: [facility] Address: [address] [place], [place] [phone] Performed By: #### 2 4321-2 #### [facility] CLIA [id number] [address] [place] [address] [place] Calcium [Mass/Vol] 8.2 mg/dL Low 8.5-10.1 [facility] Comment on above: Order Comment: Speci men Type: BLOOD SPECIMEN Ordering Facility: [facility] Address: [address] [place] [address] Performed By: #### 2 4321-2 #### [facility] CLIA [id number] [address] [place] [address] [place] Chloride [Moles/Vol] 101 mmol/L Normal 98-107 [facility] Comment on above: Order Comment: Speci men Type: BLOOD SPECIMEN Ordering Facility: [facility] Address: [address] [place] [address] Performed By: #### 2 4321-2 #### [facility] CLIA [id number] [address] [place] [address] [place] CO2 [Moles/Vol] 29 mmol/L Normal 21-32 [facility] Comment on above: Order Comment: Speci men Type: BLOOD SPECIMEN Ordering Facility: [facility] Address: [address] [place] [address] Performed By: #### 2 4321-2 #### [facility] CLIA [id number] [address] [place] [address] [place] Creatinine [Mass/Vol] 0.69 mg/dL Normal 0.51-0.95 [facility] Comment on above: Order Comment: Speci men Type: BLOOD SPECIMEN Ordering Facility: [facility] Address: [address] [address] Performed By: #### 2 4321-2 #### [facility] CLIA [id number] [address] [place] [address] OF [place] ESTIMATED GLOMERULAR FILTRATION RATE 118 mL/min/1.73m??? Normal >=60 [facility] Comment on above: Order Comment: Speci men Type: BLOOD SPECIMEN Ordering Facility: [facility] Address: [address] [phone] Result Comment: Melanie mated Glomerular Filtration Rate [...] GFR. Performed By: #### 2 4321-2 #### [facility] CLIA [id number] [address] [place] [address] [place] Glucose [Mass/Vol] 112 mg/dL High 70-99 [facility] Comment on above: Order Comment: Shanice curry Type: BLOOD SPECIMEN Ordering Facility: [facility] Address: [address] [address] Result Comment: The [place] [employer] (ADA) provides guidance for cutoff [...] Standards of Medical Care in Diabetes 2016, [place] [employer]. Diabetes Care. 2016.39(Suppl 1). Performed By: #### 2 4321-2 #### [facility] CLIA [id number] [address] [place] [address] [place] Potassium [Moles/Vol] 3.5 mmol/L Normal 3.5-5.1 [facility] Comment on above: Order Comment: Shanice curry Type: BLOOD SPECIMEN Ordering Facility: [facility] Address: [address] [phone] Performed By: #### 2 4321-2 #### [facility] CLIA [id number] [address] [place] [address] [place] Sodium [Moles/Vol] 138 mmol/L Normal 136-145 [facility] Comment on above: Order Comment: Speci men Type: BLOOD SPECIMEN Ordering Facility: [facility] Address: [address] Performed By: #### 2 4321-2 #### [facility] CLIA [id number] [address] [place] [address] [place] [facility] Urea nitrogen [Mass/Vol] 4 mg/dL Low 7-18 [facility] Comment on above: Order Comment: Speci men Type: BLOOD SPECIMEN Ordering Facility: [facility] Address: [address] [place] [address] Performed By: #### 2 4321-2 #### [facility] CLIA [id number] [address] [place] [address] STATES [facility] CBC W Auto Differential pane l (Bld)on 03-25-2022 Basophils (Bld) [#/Vol] 0.03 10*3/uL Normal <0.11 [facility] Comment on above: Order Comment: Speci men Type: BLOOD SPECIMEN Ordering Facility: [facility] Address: [address] [place] [address] Performed By: #### 5 7021-8 #### [facility] CLIA [id number] [address] [place] [address] Basophils/100 WBC (Bld) 0.4 % Normal [facility] Comment on above: Order Comment: Speci men Type: BLOOD SPECIMEN Ordering Facility: [facility] Address: [address] Performed By: #### 5 7021-8 #### [facility] CLIA [id number] [address] [place] [address] Differential cell count method Nom (Bld) Auto Normal [facility] Comment on above: Order Comment: Speci men Type: BLOOD SPECIMEN Ordering Facility: [facility] Address: [facility] [address] Performed By: #### 5 7021-8 #### [facility] CLIA [id number] [address] [place] [address] [place] Eosinophils (Bld) [#/Vol] 0.20 10*3/uL Normal <0.46 [facility] Comment on above: Order Comment: Speci men Type: BLOOD SPECIMEN Ordering Facility: [facility] Address: [address] [place] [address] Performed By: #### 5 7021-8 #### [facility] CLIA [id number] [address] [place], [place] [id number] [place] Eosinophils/100 WBC (Bld) 2.7 % Normal [facility] Comment on above: Order Comment: Speci men Type: BLOOD SPECIMEN Ordering Facility: [facility] Address: [address] [place] [address] Performed By: #### 5 7021-8 #### [facility] CLIA [id number] [address] [place] [address] [place] Erythrocyte distribution width (RBC) [Ratio] 13.6 % Normal 11.5-15.0 [facility] Comment on above: Order Comment: Speci men Type: BLOOD SPECIMEN Ordering Facility: [facility] Address: [address] [place] [address] Performed By: #### 5 7021-8 #### [facility] CLIA [id number] [address] [place], [place] [id number] [place] Hematocrit (Bld) [Volume fraction] 38.4 % Normal 36.0-46.0 [facility] Comment on above: Order Comment: Speci men Type: BLOOD SPECIMEN Ordering Facility: [facility] Address: [address] [place] [address] Performed By: #### 5 7021-8 #### [facility] CLIA [id number] [address] [place], [place] [id number] [place] Hemoglobin (Bld) [Mass/Vol] 12.7 g/dL Normal 11.5-15.5 [facility] Comment on above: Order Comment: Speci men Type: BLOOD SPECIMEN Ordering Facility: [facility] Address: [facility] [address] Performed By: #### 5 7021-8 #### [facility] CLIA [id number] [address] [place] [address] Lymphocytes (Bld) [#/Vol] 2.38 10*3/uL Normal 1.00-4.00 [facility] Comment on above: Order Comment: Speci men Type: BLOOD SPECIMEN Ordering Facility: [facility] Address: [address] [place] [address] Performed By: #### 5 7021-8 #### [facility] CLIA [id number] [address] [place] [address] Lymphocytes/100 WBC (Bld) 32.4 % Normal [facility] Comment on above: Order Comment: Speci men Type: BLOOD SPECIMEN Ordering Facility: [facility] Address: [address] [place] [address] Performed By: #### 5 7021-8 #### [facility] CLIA [id number] [address] [place] [address] [place] MCH (RBC) [Entitic mass] 28.9 pg Normal 26.0-34.0 [facility] Comment on above: Order Comment: Speci men Type: BLOOD SPECIMEN Ordering Facility: [facility] Address: [address] [place] [address] Performed By: #### 5 7021-8 #### [facility] CLIA [id number] [address] [place] [address] [place] MCHC (RBC) [Mass/Vol] 33.1 g/dL Normal 30.5-36.0 [facility] Comment on above: Order Comment: Speci men Type: BLOOD SPECIMEN Ordering Facility: [facility] Address: [address] [place] [address] Performed By: #### 5 7021-8 #### [facility] CLIA [id number] [address] [place], [place] [id number] [place] MCV (RBC) [Entitic vol] 87.5 fL Normal 80.0-100.0 [facility] Comment on above: Order Comment: Speci men Type: BLOOD SPECIMEN Ordering Facility: [facility] Address: [address] [place] [address] Performed By: #### 5 7021-8 #### [facility] CLIA [id number] [address] [place] [address] [place] Monocytes (Bld) [#/Vol] 0.85 10*3/uL Normal <0.87 [facility] Comment on above: Order Comment: Speci men Type: BLOOD SPECIMEN Ordering Facility: [facility] Address: [address] [place] [address] Performed By: #### 5 7021-8 #### [facility] CLIA [id number] [address] [place] [address] [place] Monocytes/100 WBC (Bld) 11.6 % Normal [facility] Comment on above: Order Comment: Speci men Type: BLOOD SPECIMEN Ordering Facility: [facility] Address: [address] [place] [address] Performed By: #### 5 7021-8 #### [facility] CLIA [id number] [address] [place] [address] [place] Neutrophils (Bld) [#/Vol] 3.88 10*3/uL Normal 1.45-7.50 [facility] Comment on above: Order Comment: Speci men Type: BLOOD SPECIMEN Ordering Facility: [facility] Address: [address] [place], [place] [address] Performed By: #### 5 7021-8 #### [facility] CLIA [id number] [address] [place] [address] [place] Neutrophils/100 WBC (Bld) 52.9 % Normal [facility] Comment on above: Order Comment: Speci men Type: BLOOD SPECIMEN Ordering Facility: [facility] Address: [address] [place] [address] Performed By: #### 5 7021-8 #### [facility] CLIA [id number] [address] [place] [address] [place] Platelet mean volume (Bld) [Entitic vol] 10.9 fL Normal 9.0-12.7 [facility] Comment on above: Order Comment: Speci men Type: BLOOD SPECIMEN Ordering Facility: [facility] Address: [address] [place] [address] Performed By: #### 5 7021-8 #### [facility] CLIA [id number] [address] [place] [address] [place] Platelets (Bld) [#/Vol] 257 10*3/uL Normal 150-400 [facility] Comment on above: Order Comment: Speci men Type: BLOOD SPECIMEN Ordering Facility: [facility] Address: [address] [place] [address] Performed By: #### 5 7021-8 #### [facility] CLIA [id number] [address] [place] [address] [place] RBC (Bld) [#/Vol] 4.39 10*6/uL Normal 3.90-5.20 [facility] Comment on above: Order Comment: Speci men Type: BLOOD SPECIMEN Ordering Facility: [facility] Address: [address] [place] [address] Performed By: #### 5 7021-8 #### [facility] CLIA [id number] [address] [place] [address] [place] WBC (Bld) [#/Vol] 7.34 10*3/uL Normal 3.70-11.00 [facility] Comment on above: Order Comment: Speci men Type: BLOOD SPECIMEN Ordering Facility: [facility] Address: [address] [place] [address] Performed By: #### 5 7021-8 #### [facility] CLIA [id number] [address] [place] [address] [facility] [place] ED NOTEon 03-25-2022 ED NOTE HNO ID: [id number] Author: Shauna Dietz RN Service: Emergency Medicine [...] any PMH of any heart problems. Normal [facility] ED PROV NOTEon 03-25-2022 ED PROV NOTE HNO ID: [id number] Author: Immanuel Mtz MD Service: Emergency Medicine [...] Time: 8:23 PM Immanuel Mtz MD 03/25/22 2240 Normal [facility] ED PROV NOTE HNO ID: [id number] Author: Immanuel Mtz MD Service: Emergency Medicine Author Type: Physician Type: ED Provider Notes Filed: 03/25/2022 10:40 PM Note Text: ED Provider Note Patient Name: Lidia Andres : 1990 SERVICE DATE: 03/25/22 History [...] any ac (more content not included)... Normal [facility] EKGon 03-25-2022 Electrocardiogram Ventricular Rate : 8 4 BPM Atrial Rate : 84 BPM P-R Interval : 178 ms QRS Duration : 108 ms Q-T Interval : 402 ms QTC Calculation(Bazett) : 475 ms Calculated P Jbphh : 79 degrees Calculated R Jbphh : 82 degrees Calculated T Jbphh : 53 degrees NORMAL SINUS RHYTHM WITH SINUS ARRHYTHMIA RIGHT ATRIAL ENLARGEMENT CANNOT RULE OUT ANTERIOR INFARCT , AGE UNDETERMINED ABNORMAL ECG NO PREVIOUS ECGS AVAILABLE Confirmed by ROSEANN BEARDEN ([id number]) on 04/05/2022 9:51:30 PM NAME : LIDIA ANDRES PID : [id number] : 1990 Gender : Female Race : ORD : Procedure Date : Mar 25 2022 19:52:40 Edit Date : Apr 05 2022 21:51:32 Diagnosis: NORMAL SINUS RHYTHM WITH SINUS ARRHYTHMIA RIGHT ATRIAL ENLARGEMENT CANNOT RULE OUT ANTERIOR INFARCT , AGE UNDETERMINED ABNORMAL ECG NO PREVIOUS ECGS AVAILABLE Confirmed by ROSEANN BEARDEN ([id number]) on 04/05/2022 9:51:30 PM Test Reason : Location : 148 : [facility] 6 Overread By : ROSEANN BEARDEN Edited By : ROSEANN BEARDEN Referred By : , Acquired by : ELINA LATHAM Normal [facility] HCG Preg Ur Qlon 03-25-2022 HCG ( test) Ql (U) Negative Normal Negative [facility] Comment on above: Order Comment: Speci men Type: URINE SPECIMEN Ordering Facility: [facility] Address: [address] [place] [phone] Result Comment: This test is intended to aid in the early detection of . Very dilute urine samples, as indicated by a low specific gravity, may not contain retail account representative levels of hCG. This test detects [...] . Performed By: #### 2 106-3 #### [facility] CLIA [id number] [address] [place], [place] [phone] [facility] Ion 03-25-2022 Troponin I.cardiac [Mass/Vol] 0.000 ng/mL Normal <0.040 [facility] Comment on above: Order Comment: Speci men Type: BLOOD SPECIMEN Ordering Facility: [facility] Address: [address] [place], [place] [phone] Performed By: #### T ROP #### [facility] CLIA [id number] [address] [place], [place] [id number] [place] XR CHEST 2V FRONTAL/LATon XR [...] Unremarkable exam with no acute radiographic abnormality. Type Cutter: PSCB Transcribe Date/Time: Mar 25 2022 9:00P Dictated by : DONNIE CRISTINA MD This examination was interpreted and the report reviewed and electronically signed by: DONNIE CRISTINA MD on Mar 25 2022 9:01PM EST [id number] Normal [facility] Influenza virus A and B and SARS-CoV-2 (COVID-19) Ag panel - Upper respiratory specim SARS-CoV-2 (COVID-19) RNA SUSHILA+probe Ql (Resp) [facility] Work Phone: Vital Signs Date Time Vital Sign Value Performing Clinician Facility 06-23-2024 07:36-0500 Body temperature 97.7 [degF] Fozia [facility] LIQUID LOADER.INDEPENDENT LIVING ADVISOR Work Phone: [facility] 06-23-2024 07:36-0500 Body weight 52.2 kg [facility] LIQUID LOADER.INDEPENDENT LIVING ADVISOR Work Phone: [facility] 06-23-2024 07:36-0500 Diastolic blood pressure 72 mm[Hg] [facility] LIQUID LOADER.INDEPENDENT LIVING ADVISOR Work Phone: [facility] 06-23-2024 07:36-0500 Heart rate 102 /min [facility] LIQUID LOADER.INDEPENDENT LIVING ADVISOR Work Phone: [facility] 06-23-2024 07:36-0500 Respiratory rate 16 /min [facility] LIQUID LOADER.INDEPENDENT LIVING ADVISOR Work Phone: [facility] 06-23-2024 07:36-0500 SaO2% (BldA) [Mass fraction] 97 % [facility] LIQUID LOADER.INDEPENDENT LIVING ADVISOR Work Phone: [facility] 06-23-2024 07:36-0500 Systolic blood pressure 122 mm[Hg] [facility] LIQUID LOADER.INDEPENDENT LIVING ADVISOR Work Phone: [facility] 06-22-2024 14:53-0500 Body temperature 98.29 [degF] Jaime Hummel MD Work Phone: [facility] 06-22-2024 14:53-0500 Body weight 52.4 kg Jaime Hummel MD Work Phone: [facility] 06-22-2024 14:53-0500 Diastolic blood pressure 70 mm[Hg] Jaime Hummel MD Work Phone: [facility] 06-22-2024 14:53-0500 Heart rate 120 /min Jaime Hummel MD Work Phone: [facility] 06-22-2024 14:53-0500 Respiratory rate 18 /min Jaime Hummel MD Work Phone: [facility] 06-22-2024 14:53-0500 SaO2% (BldA) [Mass fraction] 99 % Jaime Hummel MD Work Phone: [facility] 06-22-2024 14:53-0500 Systolic blood pressure 122 mm[Hg] Jaime Hummel MD Work Phone: [facility] 12-12-2023 22:19-0400 Body height 182.88 cm [facility] 12-12-2023 22:19-0400 Body mass index (BMI) [Ratio] 16.6 kg/m2 [facility] 12-12-2023 22:19-0400 Body temperature 97.8 [degF] [facility] 12-12-2023 22:19-0400 Body weight 55.56 kg [facility] 12-12-2023 22:19-0400 Diastolic blood pressure 94 mm[Hg] [facility] 12-12-2023 22:19-0400 Heart rate 91 /min [facility] 12-12-2023 22:19-0400 Respiratory rate 18 /min [facility] 12-12-2023 22:19-0400 SaO2% (BldA) [Mass fraction] 98 % [facility] 12-12-2023 22:19-0400 Systolic blood pressure 126 mm[Hg] [facility] 07-25-2022 16:16-0500 Heart rate 74 /min [facility] Work Phone: 07-25-2022 16:16-0500 Respiratory rate 16 /min [facility] Work Phone: 07-25-2022 16:16-0500 SaO2% (BldA) [Mass fraction] 97 % [facility] Work Phone: 07-25-2022 15:17-0500 Body height 182.88 cm [facility] Work Phone: 07-25-2022 15:17-0500 Body mass index (BMI) [Ratio] 16.8 kg/m2 [facility] Work Phone: 07-25-2022 15:17-0500 Body temperature 97.8 [degF] [facility] Work Phone: 07-25-2022 15:17-0500 Body weight 56.24 kg [facility] Work Phone: 07-25-2022 15:17-0500 Diastolic blood pressure 91 mm[Hg] [facility] Work Phone: 07-25-2022 15:17-0500 Systolic blood pressure 128 mm[Hg] [facility] Work Phone: 06-28-2022 08:47-0500 Body mass index (BMI) [Ratio] 15.5 kg/m2 [facility] Work Phone: 06-28-2022 08:47-0500 Body temperature 97.2 [degF] [facility] Work Phone: 06-28-2022 08:47-0500 Body weight 52.16 kg [facility] Work Phone: 06-28-2022 08:47-0500 Diastolic blood pressure 89 mm[Hg] [facility] Work Phone: 06-28-2022 08:47-0500 Heart rate 108 /min [facility] Work Phone: 06-28-2022 08:47-0500 Respiratory rate 16 /min [facility] Work Phone: 06-28-2022 08:47-0500 SaO2% (BldA) [Mass fraction] 99 % [facility] Work Phone: 06-28-2022 08:47-0500 Systolic blood pressure 118 mm[Hg] [facility] Work Phone: 05-06-2022 19:06-0400 Body height 182.88 cm [facility] Work Phone: 05-06-2022 19:06-0400 Body mass index (BMI) [Ratio] 16.9 kg/m2 [facility] Work Phone: 05-06-2022 19:06-0400 Body temperature 98.7 [degF] [facility] Work Phone: 05-06-2022 19:06-0400 Body weight 56.69 kg [facility] Work Phone: 05-06-2022 19:06-0400 Diastolic blood pressure 91 mm[Hg] [facility] Work Phone: 05-06-2022 19:06-0400 Heart rate 94 /min [facility] Work Phone: 05-06-2022 19:06-0400 Respiratory rate 15 /min [facility] Work Phone: 05-06-2022 19:06-0400 SaO2% (BldA) [Mass fraction] 96 % [facility] Work Phone: 05-06-2022 19:06-0400 Systolic blood pressure 129 mm[Hg] [facility] Work Phone: 12-26-2021 21:09-0400 Body height 182.88 cm [facility] Work Phone: 12-26-2021 21:09-0400 Body mass index (BMI) [Ratio] 19 kg/m2 [facility] Work Phone: 12-26-2021 21:09-0400 Body temperature 97.4 [degF] [facility] Work Phone: 12-26-2021 21:09-0400 Body weight 63.5 kg [facility] Work Phone: 12-26-2021 21:09-0400 Diastolic blood pressure 78 mm[Hg] [facility] Work Phone: 12-26-2021 21:09-0400 Heart rate 95 /min [facility] Work Phone: 12-26-2021 21:09-0400 Respiratory rate 15 /min [facility] Work Phone: 12-26-2021 21:09-0400 SaO2% (BldA) [Mass fraction] 97 % [facility] Work Phone: 12-26-2021 21:09-0400 Systolic blood pressure 123 mm[Hg] [facility] Work Phone: 10-27-2021 13:21-0500 Diastolic blood pressure 85 mm[Hg] [facility] Work Phone: 10-27-2021 13:21-0500 Heart rate 111 /min [facility] Work Phone: 10-27-2021 13:21-0500 Respiratory rate 16 /min [facility] Work Phone: 10-27-2021 13:21-0500 SaO2% (BldA) [Mass fraction] 99 % [facility] Work Phone: 10-27-2021 13:21-0500 Systolic blood pressure 145 mm[Hg] [facility] Work Phone: 10-27-2021 10:57-0500 Body mass index (BMI) [Ratio] 18.1 kg/m2 [facility] Work Phone: 10-27-2021 10:57-0500 Body temperature 97.1 [degF] [facility] Work Phone: 10-27-2021 10:57-0500 Body weight 60.78 kg [facility] Work Phone: Encounters Encounter Date Encounter Type Care Provider Facility Start: 04-22-2025 End: 04-22-2025 Emergency department patient visit Vickie Nogueira Facility:[facility] Start: 06-23-2024 End: 06-23-2024 ambulatory JAIME HUMMEL Facility:[facility] Start: 06-23-2024 End: 06-23-2024 Office outpatient visit 15 minutes Fozia Candelariareinier FUENTES Work Phone: [facility] Comment on above: Nasal congestion (Pr imary Dx) Start: 06-22-2024 End: 06-22-2024 Emergency department patient visit Manuel Sam Facility:[facility] Start: 06-22-2024 End: 06-22-2024 Subsequent hospital visit by physician Xr [facility] Work Phone: Radiology Comment on above: Acute cough [R05.1] Start: 06-22-2024 End: 06-22-2024 ambulatory JAIME HUMMEL Facility:[facility] Start: 06-22-2024 End: 06-22-2024 Patient encounter procedure Jaime Hummel MD Work Phone: [facility] Comment on above: SOB (shortness of br eath) (Primary Dx); Left-sided chest pain; Dizziness; Acute cough Start: 12-12-2023 End: 12-12-2023 Emergency department patient visit [facility] Work Phone: Start: 07-25-2022 End: 07-25-2022 Emergency department patient visit [facility] Start: 06-28-2022 End: 06-28-2022 Emergency department patient visit [facility] Start: 05-06-2022 End: 05-06-2022 Emergency department patient visit [facility] Start: 12-26-2021 End: 12-26-2021 Emergency department patient visit [facility] Start: 10-27-2021 End: 10-27-2021 Emergency department patient visit [facility] Procedures Date Procedure Procedure Detail Performing Clinician Start: 06-22-2024 Radiologic exam ches t 2 views Jaime Hummel MD Work Phone: Start: 12-12-2023 Plain x-ray of hand Start: 06-28-2022 Plain x-ray of elbow Start: 06-28-2022 Radiography of ankle Start: 06-28-2022 Radiologic examinati on of knee Start: 06-28-2022 X-ray of chest posteroanterior view Start: 06-28-2022 CT of head without contrast Start: 10-27-2021 Plain chest X-ray SARS-CoV-2 & FLU Ant igen (Rapid) Plan of Treatment Date Care Activity Detail Author Start: 06-28-2032 Urine microalbumin profile DTaP,Tdap,Td Vaccine (2 - Td or Tdap) [facility] Start: 04-19-2024 Covid-19 Vaccine ( season) Covid-19 Vaccine ( season) [facility] Start: 04-19-2024 Influenza vaccination Influenza Vaccine (#1) [facility] Start: 12-12-2023 [facility] Start: 2010 Screening for malignant neoplasm of cervix Cervical Cancer Screening [facility] Start: 2008 Hepatitis B Vaccine (1 of 3 - 19+ 3-dose series) Hepatitis B Vaccine (1 of 3 - 19+ 3-dose series) [facility] Start: 2007 Anxiety Screening Anxiety Screening [facility] Start: 2007 Depression Screening Depression Screening [facility] Start: 2007 Hepatitis C screening Hepatitis C Screening [facility] Start: 2007 HIV screening HIV Screening [facility] Start: 1995 Pneumococcal vaccination Pneumococcal Vaccine (1 of 2 - PCV) [facility] Patient Education [facility] Work Phone: Patient referral [facility] Work Phone: Immunizations Immunization Date Immunization Notes Care Provider Fa cility 06-28-2022 tetanus toxoid, redu meagan diphtheria toxoid, and acellular pertussis vaccine, adsorbed [facility] Payers Date Payer Category Payer Self-pay [id number] Medicaid MEDICAID [id number] Unknown [facility] [id number] Unknown [id number] Unknown [id number] Social History Date Type Detail Facility [facility] Work Phone: Start: 12-26-2021 End: 12-12-2023 Tobacco smoking status NHIS Unknown if ever smoked [facility] Start: 1990 Sex Assigned At Female W [facility] Start: 03-25-2022 Tobacco smoking stat us NHIS Smokes tobacco daily [facility] History of tobacco use Cigarette Smoker [facility] Start: 06-22-2024 End: 06-23-2024 Alcoholic beverage intake Lifetime non-drinker (finding) [facility] Start: 2022 End: 06-22-2024 History of Social function [facility] Start: 2022 End: 06-22-2024 Tobacco use panel [facility] National Score (1-10 0), lower number is lower risk 98 [facility] Start: 1990 Sex assigned at Not on file [facility] Mental Status Date Assessment Result Facility 12-26-2021 Cognitive function Level Of Cons ciousness Awake;Alert;Appropriate;Follow s Commands [facility] Work Phone: Clinical Notes 06-22-2024 to 06-23-2024 Fozia Gerard APRN.[employer] - 06/23/2024 7:41 AM Luigi Rajput RT(R) - 06/22/2024 3:20 PM Jaime Felder MD - 06/22/2024 2:57 PM EST Note Date & Type Note Facility 06-23-2024 Note HNO ID: [id number] Author: FOZIA GERARD APRN.[employer] Service: ? Author Type: Nurse Practitioner Type: Progress Notes Filed: 06/23/2024 07:55 Note Text: Subjective HPI Nontoxic-appearing female presents urgent care chief complaint sinus problem. Duration of symptoms 2 days. Associated symptoms sinus pressure. Was seen here yesterday. Negative chest x-ray. Send the ED for chest pain. Negative workup in ER. Presents today with persistent sinus pressure. OTC medications none. Denies any other concerns. Past medical history prescription medications allergies reviewed .Patient presents with: Sinus Problem: sinus pressure and drainage x 2 days PAST MEDICAL HISTORY Diagnosis Date Autism Childhood asthma Endometriosis Gestational diabetes PAST SURGICAL HISTORY Procedure Laterality Date SECTION HX LAPAROSCOPY DIAGNOSTIC ALLERGIES Penicillin G MEDICATIONS No prescriptions on file. No family history on file. Social History Tobacco Use Smoking status: Every Day Types: Cigarettes Substance Use Topics Alcohol use: Never Drug use: Never BP 122/72 Pulse 102 Temp 36.5 ?C (97.7 ?F) Resp 16 Wt 52.2 kg (115 lb 1.3 oz) LMP 03/18/2022 SpO2 97% Review of Systems Constitutional: Negative for chills, fever and malaise/fatigue. HENT: Positive for congestion and sinus pain. Negative for ear discharge, ear pain and sore throat. Eyes: Negative for blurred vision, pain, discharge and redness. Respiratory: Negative for cough, hemoptysis, sputum production, shortness of breath, wheezing and stridor. Cardiovascular: Negative for chest pain. Gastrointestinal: Negative for abdominal pain, diarrhea, nausea and vomiting. Musculoskeletal: Negative for myalgias. Skin: Negative for itching and rash. Neurological: Negative for dizziness and headaches. Objective Physical Exam Constitutional: General: She is not in acute distress. Appearance: She is not diaphoretic. HENT: Head: Normocephalic. Jaw: No trismus, tenderness, swelling or pain on movement. Right Ear: Tympanic membrane, ear canal and external ear normal. Left Ear: Tympanic membrane, ear canal and external ear normal. Nose: Congestion present. Mouth/Throat: Mouth: Mucous membranes are moist. Pharynx: Oropharynx is clear. Uvula midline. No pharyngeal swelling, oropharyngeal exudate, posterior oropharyngeal erythema or uvula swelling. Eyes: Conjunctiva/sclera: Conjunctivae normal. Pupils: Pupils are equal, round, and reactive to light. Cardiovascular: Rate and Rhythm: Normal rate and regular rhythm. Heart sounds: Normal heart sounds. Pulmonary: Effort: Pulmonary effort is normal. No tachypnea, accessory muscle usage or respiratory distress. Breath sounds: Normal breath sounds. No stridor. No wheezing, rhonchi or rales. Abdominal: General: There is no distension. Palpations: Abdomen is soft. Tenderness: There is no abdominal tenderness. There is no guarding or rebound. Musculoskeletal: Cervical back: Normal range of motion and neck supple. No edema, erythema, rigidity or tenderness. No pain with movement. Normal range of motion. Lymphadenopathy: Cervical: No cervical adenopathy. Skin: General: Skin is warm and dry. Neurological: Mental Status: She is alert and oriented to person, place, and time. ASSESSMENT/PLAN: 1. Nasal congestion - ICD9: 478.19, ICD10: R09.81 Diagnosed with nasal congestion. Placed on Afrin. Patient was educated on supportive therapies. Patient will follow up with primary care provider as needed. Patient was instructed to immediately proceed to emergency room for any new, worsening, or symptoms lasting longer than anticipated. The patient's clinical presentation is otherwise unremarkable at this time. Based on exam and clinical finding, the patient is stable for discharge. Plan of care was discussed with patient. Patient verbalizes understanding and agrees to plan of care. This note was generated using [employer] software. It may contain errors in wording, punctuation, or spelling. Fozia Gearrd APRN.[facility] 06-23-2024 History of Present illness Narrative Subjective HPI Nontoxic-appearing female presents urgent care chief complaint sinus problem. Duration of symptoms 2 days. Associated symptoms sinus pressure. Was seen here yesterday. Negative chest x-ray. Send the ED for chest pain. Negative workup in ER. Presents today with persistent sinus pressure. OTC medications none. Denies any other concerns. Past medical history prescription medications allergies reviewed .Patient presents with: Sinus Problem: sinus pressure and drainage x 2 days PAST MEDICAL HISTORY Diagnosis Date Autism Childhood asthma Endometriosis Gestational diabetes PAST SURGICAL HISTORY Procedure Laterality Date SECTION HX LAPAROSCOPY DIAGNOSTIC ALLERGIES Penicillin G MEDICATIONS No prescriptions on file. No family history on file. Social History Tobacco Use Smoking status: Every Day Types: Cigarettes Substance Use Topics Alcohol use: Never Drug use: Never BP 122/72 Pulse 102 Temp 36.5 C (97.7 F) Resp 16 Wt 52.2 kg (115 lb 1.3 oz) LMP 03/18/2022 SpO2 97% Review of Systems Constitutional: Negative for chills, fever and malaise/fatigue. HENT: Positive for congestion and sinus pain. Negative for ear discharge, ear pain and sore throat. Eyes: Negative for blurred vision, pain, discharge and redness. Respiratory: Negative for cough, hemoptysis, sputum production, shortness of breath, wheezing and stridor. Cardiovascular: Negative for chest pain. Gastrointestinal: Negative for abdominal pain, diarrhea, nausea and vomiting. Musculoskeletal: Negative for myalgias. Skin: Negative for itching and rash. Neurological: Negative for dizziness and headaches. Objective Physical Exam Constitutional: General: She is not in acute distress. Appearance: She is not diaphoretic. HENT: Head: Normocephalic. Jaw: No trismus, tenderness, swelling or pain on movement. Right Ear: Tympanic membrane, ear canal and external ear normal. Left Ear: Tympanic membrane, ear canal and external ear normal. Nose: Congestion present. Mouth/Throat: Mouth: Mucous membranes are moist. Pharynx: Oropharynx is clear. Uvula midline. No pharyngeal swelling, oropharyngeal exudate, posterior oropharyngeal erythema or uvula swelling. Eyes: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
--- NOTE | 2025-06-10 20:35 | EX.ED.SAOD ---
HPI History of Present Illness Chief Complaint: Mental Health Narrative Narrative: 24-year-old female past medical history of anxiety presents with concern for mental health issues. She states that she is not quite sure why she is here. The last thing she remembers is that she was having a good time with her friend in the car, and she was brought to the emergency department/woke up here. She does admit to smoking marijuana and drinking alcohol today. Per crisis counselor, she was evaluated out in the community, and appears intoxicated. They would like medical screening labs performed and then reportedly will reevaluate her. Patient states that she is having a panic attack, and that she has history of autism as well. [facility] Medical History Endometriosis Asthma Home Medications ?Medication ?Instructions ?Recorded ?Last Taken ?Type NK 06/22/24 Unknown History Allergy/AdvReac Type Severity Reaction Status Date / Time bee pollen Allergy Severe Anaphylaxis Verified 06/10/25 20:11 shellfish derived Allergy Severe Anaphylaxis Verified 06/10/25 20:11 Penicillins (PCN) Allergy Anaphylaxis Verified 06/10/25 20:11 Family History no significant family his Social History housing: house Smoking Status: Current every day smoker tobacco type: cigarettes ROS ROS ED ROS Narrative Review of systems positive for anxiety. Denies chest pain or shortness of breath. Admits to drinking alcohol and smoking marijuana. Patient denies any suicidal ideation. She denies any hallucinations, states she is not hearing voices and never has. EXAM Physical Exam Narrative Exam Narrative: Afebrile. Vital signs noted. Nontoxic-appearing. However, patient mildly paranoid. Cardiovascular examination regular rate and rhythm. Lungs are clear to auscultation bilaterally. Abdomen is soft and nontender with positive bowel sounds. Neurological examination nonfocal, nonlateralizing, moves all extremities. Psychiatric examination is consistent with anxiety and mild psychosis. She states she is having a panic attack which is normal for her and that she is usually supposed to take Valium but has not been taking it. Const Vital Signs: 06/10/25 20:10 06/10/25 21:10 Temperature 98.1 F Temperature Source Oral Pulse Rate 89 114 H Respiratory Rate 18 Blood Pressure 159/100 H 141/109 H Blood Pressure Mean 119 119 Pulse Ox 100 97 Oxygen Delivery Method Room Air Room Air MDM MDM MDM Narrative Medical decision making narrative: Differential diagnosis includes but not limited to marijuana induced psychosis versus alcohol intoxication versus polysubstance abuse. I do not feel that the patient requires a sitter, and currently does not meet criteria for 72-hour hold. However, I do not feel that she has the capacity to sign out AGAINST MEDICAL ADVICE, and she needs to be medically cleared. Mental health baseline laboratories were drawn and reviewed. I reviewed her laboratory work and she has slightly elevated white count of 11.3 which I think is nonspecific, hemoglobin 15.1, slightly hemoconcentrated with hematocrit 44.4, platelet count 377. CMP is remarkable for BUN low at 3 with creatinine 0.58, normal sodium and potassium, normal CO2. Serum test is negative. Urine for drugs of abuse presumptively positive for cannabinoids which she admits to smoking daily. Her blood alcohol level is elevated at 304. As she is intoxicated, she is not yet medically cleared for reevaluation by crisis. In discussion with the crisis counselor, he spoke with the patient's mother and she states that within the last month or 2 she had been admitted to a psychiatric facility for suicidal ideation. However, she currently denies this. She did have forward thinking when he evaluated her initially, but she had not told the truth about her access to firearms. Patient started to become disruptive and violent. She started cursing at the RNs and using expletives. For safety of the patient and staff, she was placed in restraints. She was administered Geodon 20 mg intramuscularly. At this point in time, she will be signed out to the overnight physician, Dr. Harvinder Valdes who will observe the patient until she is sober, and then medically cleared for reevaluation. In discussion with the crisis counselor, given her forward thinking, she might only require safety planning. Disposition is pending. Patient in stable condition. History & Record Review Discussion w/independent historian: Patient and Other (Crisis counselor) Lab Data Attestation: I reviewed the patient's lab results. Labs: Laboratory Results - last 24 hr 06/10/25 06/10/25 20:21 20:43 WBC 11.3 H RBC 5.15 Hgb 15.1 H Hct 44.4 MCV 86.2 MCH 29.3 MCHC 34.0 RDW Std Deviation 47.8 H RDW Coeff of Nish 15.4 H Plt Count 377 MPV 9.9 Immature Gran % (Auto) 0.200 Neut % (Auto) 66.3 Lymph % (Auto) 25.2 [place] % (Auto) 7.1 Eos % (Auto) 0.5 Baso % (Auto) 0.7 Absolute Neuts (auto) 7.5 Absolute Lymphs (auto) 2.85 Nucleated RBC % 0 Sodium 142 Potassium 3.7 Chloride 105 Carbon Dioxide 25.0 Anion Gap 12 BUN 3 L Creatinine 0.58 L Est GFR (MDRD) Non-Af 121 BUN/Creatinine Ratio 5.8 L Glucose 86 Calcium 8.8 Total Bilirubin 0.27 AST 30 ALT 30 Alkaline Phosphatase 137 H Total Protein 7.1 Albumin 4.4 Globulin 2.7 Albumin/Globulin Ratio 1.7 Serum , Qual NEGATIVE Urine Opiates Screen NEGATIVE U Buprenorphine Qual NEGATIVE Ur Oxycodone Screen NEGATIVE Urine Methadone Screen NEGATIVE Urine Fentanyl Screen NEGATIVE Ur Barbiturates Screen NEGATIVE Ur Phencyclidine Scrn NEGATIVE Ur Amphetamines Screen NEGATIVE U Benzodiazepines Scrn NEGATIVE Urine Cocaine Screen NEGATIVE U Cannabinoids Screen PRESUMPTIVE POSITIVE Ethyl Alcohol 304.0 H* Management Discussion w/another healthcare provider: Behavioral health Discharge Plan Triage Chief Complaint: Mental Health ED Provider: Lizandro Salas Dx/Rx/DC Orders Prescriptions: No Action NK Primary Care Provider: Care Physician,No Primary Referrals: Care Physician,No Primary [Primary Care Provider, Medical] Print Language: French
[2025-06-10 21:01] LABS: Hematocrit 44.4 % (37-47); Hemoglobin 15.1 g/dL (12.0-15.0); Immature Granulocytes Count 0.020 X10^3/uL (0.0-0.0); Mean Corp Hgb Conc 34.0 g/dL (32-36); Mean Corpuscular Volume 86.2 fL (81-99); Mean Platelet Vol. 9.9 fl (6.2-12.0); NRBC Flagged by Analyzer 0 % (0-5); Platelet Count 377 K/mm3 (150-450); RBC Distribution Width CV 15.4 % (11.6-14.6); RBC Distribution Width SD 47.8 fl (35.1-43.9); Red Blood Count 5.15 M/mm3 (4.2-5.4); White Blood Count 11.3 K/mm3 (4.4-11.0)
--- NOTE | 2025-06-10 21:04 | ED.RN ---
This RN witnessed Pt requesting ramp program and witnessed crisis telling Pt that once alcohol level low enough this maybe an option.
[2025-06-10 21:11] LABS: Internal QC Validated? YES +Cl - CLEAR BKGD; Pregnancy, Serum, hCG Quali. NEGATIVE Negative; Record Kit Lot#, Serum Preg. 0000980607
[2025-06-10 21:25] LABS: AST(SGOT) 30 U/L (<=31); Alanine Aminotransfer ALT/SGPT 30 U/L (<=34); Albumin, Serum 4.4 g/dL (3.5-5.0); Alkaline Phosphatase 137 U/L (35-104); Anion Gap 12 (5-15); BUN 3 mg/dL (4-19); BUN/Creat Ratio 5.8 RATIO (10-20); Calcium,Total 8.8 mg/dL (7.6-11.0); Carbon Dioxide 25.0 mmol/L (21.0-32.0); Chloride 105 mmol/L (98-108); Globulin 2.7 g/dL (2.2-4.2); Glucose 86 mg/dL (70-99); Potassium 3.7 mmol/L (3.3-5.1)
[2025-06-10 21:26] LABS: Barbiturate Urine NEGATIVE (< 200 ng/mL); Benzodiazepine Urine NEGATIVE (< 200 ng/mL); PCP Urine NEGATIVE (< 25 ng/mL); THC Urine PRESUMPTIVE POSITIVE (< 50 ng/mL)
[2025-06-10 21:27] LABS: Alcohol, Blood (Medical)-Serum 304.0 mg/dL (<=10.0)
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
[2025-06-10] MEDS: Ziprasidone IM 20 MG/ML VIAL IM (21:42)
--- NOTE | 2025-06-10 22:04 | ED.RN ---
Addendum entered by Candelaria Amezcua 06/10/25 22:09: Pt also swinging at nursing staff. Original Note: Per Dr Salas- Pt on medical hold. Pt screaming and assisting on leaving. This RN tried to verbally de-esculate Pt. Pt still insisting on screaming and assisting on leaving. Pt making attempt to leave and had to be put in restraints in order to keep from leaving.
--- NOTE | 2025-06-10 23:49 | ED.RN ---
[id number] report recieved from Candelaria.pt has been sleeping and calm, restraints removed at this time and will monitor.
[2025-06-11] VITALS: BP 111/82
[2025-06-11 08:28] LABS: Alcohol, Blood (Medical)-Serum < 10.1 mg/dL (<=10.0)
[2025-06-11 09:25] VITALS: BP 149/109; PULSE 104; RESP 17; TEMP 36.7; O2SAT 96
[2025-06-11] MEDS: Nicotine (PBKC) 7 MG Patch TD (10:10)
[2025-06-11 14:05] VITALS: BP 136/80; PULSE 104; RESP 17; TEMP 36.7; O2SAT 96
== END 2025-06-11 14:06 | disposition home or self-care (01) ==
PROVIDERS: Emergency Provider Emergency Medicine; Visit Provider Emergency Medicine
DX: F41.9 Anxiety disorder, unspecified (principal); F17.210 Nicotine dependence, cigarettes, uncomplicated
CPT/HCPCS: 36415; 80053; 80307; 82077; 84703; 85025; 96372; 99283